=== PATIENT | female | born 2005 | race Caucasian/White ===

== ENCOUNTER → 2024-07-13 | Outpatient (CLI) | payer OTHER, SELFPAY ==
[2024-07-13 07:09] LABS: Quantiferon-TB* See Sep Rpt
[2024-07-13 07:58] LABS: Collection Type, Urine Clean Catch
[2024-07-13 08:29] LABS: Basophils % (Auto) 1 % (0-2.5); Eosinophils # (Auto) 0.1 Thou/mm3 (0.0-0.5); Eosinophils % (Auto) 2 % (0-10); Hematocrit 36.9 % (36.0-46.0); Hemoglobin 12.8 g/dL (12.0-16.0); Immature Granulocytes % (Auto) 0 % (0-0); Immature Granulocytes Auto 0.02 Thou/mm3 (0.00-0.00); Lymphocytes # (Auto) 1.6 Thou/mm3 (1.0-5.0); Lymphocytes % (Auto) 26 % (10-50); Mean Corpuscular HGB Conc 34.7 g/dl (31.0-37.0); Mean Corpuscular Hemoglobin 31.2 pg (25.0-35.0); Mean Corpuscular Volume 90 fL (80-100); Monocytes # (Auto) 0.7 Thou/mm3 (0.0-0.8); Monocytes % (Auto) 11 % (0-12); Neutrophils # (Auto) 3.6 Thou/mm3 (1.8-7.7); Neutrophils % (Auto) 60 % (37-80); Nucleated Red Blood Cell % 0 /100 WBC (0); Platelet Count 184 Thou/mm3 (140-440); RDW Standard Deviation 39.4 fL (36.4-46.3)
[2024-07-13 08:31] LABS: Bilirubin,Urine Negative (Negative); Blood,Urine Negative (Negative); Clarity,Urine Clear (Clear/Hazy); Color,Urine Yellow (Lt Yel-Yel); Glucose, Urine Negative (Negative); Ketones,Urine 1+ (Negative); Nitrite,Urine Negative (Negative); PH,Urine 6.5 (5.0-7.0); Protein,Urine Trace (Neg - Trace); RBC,Urine 2 /hpf (0-3); Specific Gravity,Urine 1.029 (1.001-1.035); Squamous Epithelial Cell,Urine 4 /hpf (0-5); Urobilinogen,Urine Negative mg/dL (0.0-1.0); WBC,Urine 1 /hpf (0-5)
[2024-07-13 08:35] LABS: Leukocyte Esterase,Urine Trace (Negative)
[2024-07-13 08:57] LABS: Alanine Aminotransferase 13 U/L (10-49); Albumin, Serum 4.6 gm/dL (3.5-5.0); Albumin/Globulin Ratio 2.3 (1.2-2.2); Alkaline Phosphatase 60 U/L (46-116); Anion Gap 8 (7-16); Aspartate Amino Transferase < 10 U/L (0-34); BUN/Creatinine Ratio 13 Ratio (12-20); Bilirubin,Total 0.3 mg/dL (0.3-1.2); Blood Urea Nitrogen 13 mg/dL (9-23); Calcium 9.8 mg/dL (8.3-10.6); Calcium (Corrected) 9.8 mg/dL (8.5-10.1); Carbon Dioxide 25.7 mMol/L (20.0-31.0); Chloride 103 mMol/L (98-107); Glucose 93 mg/dL (74-106); Osmolality,Calculated 273 (275-295); Potassium 4.2 mMol/L (3.4-5.1); Sodium 137 mMol/L (136-145); Total Protein 6.6 gm/dL (5.7-8.2); eGFR > 60 See Note
[2024-07-13 09:02] LABS: Syphilis Nonreactive (Nonreactive)
[2024-07-13 09:24] LABS: Hepatitis A Antibody IgM Non Reactive (Non React); Hepatitis B Core Antibody IgM Non Reactive (Non React); Hepatitis B Surface Antigen Non Reactive (Non React); Hepatitis C Antibody Non Reactive (Non React); Rubella, IgG Antibody Reactive (Immune)
[2024-07-13 19:27] LABS: Chlamydia trachomatis PCR Negative (Not Detect); Neisseria Gonorrhoeae DNA PCR Negative (Not Detect); Trichomonas Negative (Negative)
[2024-07-20 06:51] LABS: HIV Ag/Ab, 4th Gen NON-REACTIVE
== END | disposition home or self-care (01) ==
LOC: COPL 06:52
PROVIDERS: PCP Family Medicine; Referring Provider Student in an Organized Health Care Education/Training Program; Visit Provider Student in an Organized Health Care Education/Training Program
DX: R53.83 Other fatigue (principal); Z33.1 Pregnant state, incidental
CPT/HCPCS: 36415; 80053; 80074; 81001; 85025; 86480; 86762; 86780; 86901; 87086; 87389; 87491; 87591; 87661

== ENCOUNTER → 2024-07-30 | Outpatient (CLI) | payer OTHER, SELFPAY ==
[2024-07-30 17:50] LABS: Glucose Estimated Average 88 mg/dL (80-131); Hemoglobin A1C 4.7 % Hgb (4.8-6.0)
[2024-07-30 18:03] LABS: T4 (Thyroxine) 10.1 mcg/dL (4.5-10.9); Thyroid Stimulating Hormone 0.97 uIU/mL (0.55-4.78)
[2024-08-04 06:29] LABS: ANA Pattern NUCLEAR, SPECKLED; ANA Screen, IFA POSITIVE (NEGATIVE); Thyroid Peroxidase Antibodies* <1 IU/mL (<9)
== END | disposition home or self-care (01) ==
LOC: COPL 17:12
PROVIDERS: PCP Nurse Practitioner Family; Referring Provider Nurse Practitioner Family; Visit Provider Nurse Practitioner Family
DX: D89.9 Disorder involving the immune mechanism, unspecified (principal); R73.03 Prediabetes; Z01.83 Encounter for blood typing
CPT/HCPCS: 36415; 83036; 84436; 84443; 86038; 86039; 86376; 86850; 86900; 86901

== ENCOUNTER 2024-11-11 13:48 | Outpatient (AMB) | payer OTHER, SELFPAY ==
[2024-11-11 14:04] VITALS: BP 123/82; PULSE 95; RESP 18; TEMP 36.8; O2SAT 98; BMI 39.9
--- NOTE | 2024-11-11 14:04 | AMB.OBINITIA ---
Vital Signs 11/11/24 14:04 Height 1.63 m Height Method Stated Weight 105.347 kg Weight Measurement Method Baby Scale BMI 39.9 BP 123/82 Blood Pressure Source Automatic Cuff Blood Pressure Location Left Upper Arm Position Sitting Respiration 18 Pulse 95 Pulse Source Monitor Temp 98.2 F Temp Source Oral Pulse Oximetry (%) 98 Oxygen Delivery Method Room Air Allergies/Home Meds Allergies & Medications Allergies No Known Allergies Allergy (Verified 11/11/24 14:06) Medication Reconciliation No Known Home Medications 11/11/24 [History Confirmed 11/11/24] Intake Visit Data Collection New Patient or Established: Established Patient (seen at [facility] within 3 years) Reason for Visit:: Transfer of obstetrical care, 24 weeks Seen by Clinical Staff ONLY (RN/MA): No Anesthesiology Physician Required: No Do You Feel Safe at Home: Yes Authorities Contacted: N/A PCP or OBGYN visit in last 3 months: Yes Date of Last PCP or OBGYN visit: 11/11/24 Hx Now: Yes Are you currently on any form of Control: No Last menstrual period: 05/28/24 Pain Present Currently: No Pain Scale Used: Woods-Murillo/Numerical Pain scale:: 0 Smoking Status Smoking Status: Never smoker Questionnaires Covid-19 Vaccine Questionnaire Has patient been vacinated for Covid-19 Have you been vacinated for Covid-19: Yes PHQ-9 PHQ-2 Over the last 2 weeks, how often have you been bothered by any of the following problems? 1. Little interest or pleasure in doing things: not at all 2. Feeling down, depressed, or hopeless: not at all Total score: 0 PHQ-9 3. Trouble falling or staying asleep, or sleeping too much: Not at all 4. Feeling tired or having little energy: Not at all 5. Poor appetite or overeating: Not at all 6. Feeling bad about yourself - or that you are a failure or have let yourself or your family down: Not at all 7. Trouble concentrating on things, such as reading the newspaper or watching television: Not at all 8. Moving or speaking so slowly that other people could have noticed? - Or the opposite - being so fidgety or restless that you have been moving around a lot more than usual: not at all 9. Thoughts that you would be better off or of hurting yourself in some way: Not at all Total score: 0 If you checked off any problems, how difficult have these problems made it for you to do your work, take care of things at home, or get along with other people?: not difficult at all Source: Developed by Drs. Immanuel Yarbrough, Kate Sarmiento, Ramu Jasso and colleagues, with an educational kelsy from [employer]. 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 Her Memo is an IT tech. Tobacco History Smoking Status: Never smoker Domestic Abuse History Do You Feel Safe at Home: Yes Past Medical History Past Medical History Have you ever been diagnosed with any of the following: History of Present Illness HPI Narrative The patient is a very pleasant 19-year-old G1, P0 presents with her Memo as a transfer of care from [facility]. She is 24 weeks . Her due date is 03/03/2025. Patient reports good movement no contractions and no loss of fluids. Her past medical history is reviewed with her today revealing no significant past medical history she has no past surgical history she has her records from [facility] and these are reviewed with her today OB Initial Visit Menstrual History Menstrual reliability: definite Flow: normal Menstrual regularity: regular Monthly: Yes Age at menarche: 12 On control pills at conception: No Associated symptoms (LMP): Reports nausea OB History : 1 Para: 0 Hx # Pregnancies: 0 Hx Total # of Abortions (Spontaneous & Elective): 0 # of Living Children: 0 Infection History & Risk Evaluation History of STDs: none HIV risk evaluation: low risk Hepatitis B risk evaluation: low risk Patient or partner has history of Genital Herpes: No Varicella/chicken pox status: immunized Genetic Screening & History Genetic Screening/Teratology Counseling - Includes patient, baby's father, or anyone in either family with: 1. Patient's age 35 years or older as of estimated date of delivery: No 2. Thalassemia (Slovak, Upper Sorbian, Mediterranean, or Background); MCV less than 80: No 3. Neural Tube Defect (Meningomyelocele, Spina Bifida, or Anencephaly): No 4. Congenital Heart Defect: No 5. Down Syndrome: No 6. Yahir-Sachs (Ashkenazi Presybeterian, [employer]irsthealth, Bermudian [place]): No 7. Concepcion Disease (Ashkenazi Presybeterian): No 8. Familial Dysautonomia (Ashkenazi Presybeterian): No 9. Sickle Cell Disease or Trait (): No 10. Hemophilia or other blood disorders: No 11. Muscular Dystrophy: No 12. Cystic Fibrosis: No 13. Brantingham's Chorea: No 14. Mental Retardation/Autism: No 15. Other inherited genetic or chromosomal disorder: No 16. Maternal Metabolic Disorder (EG,TYPE 1 Diabetes, PKU): No 17. Patient or baby's father had a child with defects not listed above: No 18. Recurrent loss or a stillbirth: No 19. Medications (including supplements, vitamins, herbs or otc drugs)/illicit/recreational drugs/alcohol since last menstrual period: No 20. Any other: No Infection History 1. Live with someone with TB or exposed to TB: No 2. Rash or viral illness since last menstrual period: No 3. Hepatitis B,C: No Other (see comments) Source: [employer] Review of Systems Review of Systems Narrative Review of Systems: Patient feels good. No nausea good energy no bleeding no loss of fluids. Good movement. Gastrointestinal Gastrointestinal: Reports nausea Exam General General Appearance: alert, in no apparent distress, comfortable, cooperative and healthy appearing Results Objective Laboratory: Patient's lab work is reviewed today. She is A +, antibody screen negative, rubella immune, RPR nonreactive, hepatitis B surface antigen negative ,hep C negative ,drug screen negative ,urine culture negative , HIV negative, GC chlamydia negative . Hemoglobin 12.3. Cystic fibrosis, SMA and NIPT are reviewed and are normal. NIPT is 46XX. AFP testing was negative for spina bifida Assessment & Plan Diagnosis / Problem List (1) : Status: Acute Qualifiers: Weeks of gestation: 24 weeks Qualified Code(s): Z3A.24 - 24 weeks gestation of Assessment and Plan: Patient is up-to-date with all labs. She will need a glucose screening test and a structural survey and these were ordered. Follow-up in 4 weeks. She is taking vitamins.
== END 2024-11-11 14:56 | disposition home or self-care (01) ==
LOC: HODSOBC 13:48
PROVIDERS: Supervising Provider Obstetrics & Gynecology; Visit Provider Obstetrics & Gynecology
DX: Z76.89 Persons encountering health services in other specified circumstances (principal)

== ENCOUNTER → 2024-11-11 | Outpatient (CLI) | payer OTHER, SELFPAY ==
[2024-11-11 17:55] LABS: Glucose,1 Hour PP 50gm Dose 94 mg/dL (80-140)
== END | disposition home or self-care (01) ==
PROVIDERS: PCP Family Medicine; Referring Provider Obstetrics & Gynecology; Visit Provider Obstetrics & Gynecology
DX: Z34.90 Encounter for supervision of normal pregnancy, unspecified, unspecified trimester (principal)
CPT/HCPCS: 36415; 82950

== ENCOUNTER 2024-12-11 15:20 | Outpatient (AMB) | payer OTHER, SELFPAY ==
--- NOTE | 2024-12-11 15:38 | AMB.OBVISIT ---
Vital Signs 12/11/24 15:39 Height 1.63 m Height Method Stated Weight 109.543 kg Weight Measurement Method Standing Scale BMI 41.2 BP 115/73 Blood Pressure Source Automatic Cuff Blood Pressure Location Left Upper Arm Position Sitting Respiration 18 Pulse 87 Pulse Source Monitor Temp 97.2 F Temp Source Oral Pulse Oximetry (%) 98 Oxygen Delivery Method Room Air Allergies/Home Meds Allergies & Medications Allergies No Known Allergies Allergy (Verified 12/11/24 15:39) Medication Reconciliation azithromycin 250 mg tablet See Rx Instructions PO .COMPLEX #6 tabs 12/15/24 [Rx] Intake Visit Data Collection New Patient or Established: Established Patient (seen at [facility] within 3 years) Reason for Visit:: OBC Seen by Clinical Staff ONLY (RN/MA): No Slicing Machine Operator/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 1. Little interest or pleasure in doing things: not at all 2. Feeling down, depressed, or hopeless: not at all Total score: 0 PHQ-9 3. Trouble falling or staying asleep, or sleeping too much: Not at all 4. Feeling tired or having little energy: Not at all 5. Poor appetite or overeating: Not at all 6. Feeling bad about yourself - or that you are a failure or have let yourself or your family down: Not at all 7. Trouble concentrating on things, such as reading the newspaper or watching television: Not at all 8. Moving or speaking so slowly that other people could have noticed? - Or the opposite - being so fidgety or restless that you have been moving around a lot more than usual: not at all 9. Thoughts that you would be better off or of hurting yourself in some way: Not at all Total score: 0 If you checked off any problems, how difficult have these problems made it for you to do your work, take care of things at home, or get along with other people?: not difficult at all Source: Developed by Drs. Immanuel Yarbrough, Kate Sarmiento, Ramu Jasso and colleagues, with an educational kelsy from [employer]. 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 Her Memo is an [employer] tech. Tobacco History Smoking Status: Never smoker Second Hand Smoke Exposure: No Alcohol History Alcohol Intake: Never Domestic Abuse History Do You Feel Safe at Home: Yes Care OB Visit Log OB Flowsheet Initial Weight: Not Recorded Date <del>?</del> EGA Weight Edema CTX Effacement BP Fundal ht Pres Dilation Effacement Station Visit Note Alb Glu FHR Mov 12/11/24 <del>?</del> 28w 1d 109.543 kg 115/73 29 Not seen as I had to run out for a delivery +FM more in am and at night. No VB or LOF. Back pain, sits at work all day 140 active STORM Calculator Estimated Delivery Date Method Current WG Current Estimate 03/04/25 LMP (Certain) 28w 5d Comments: Labs [facility] A+/ Ab screen neg/ RI/ RPR NR/ HIV-/Hep C-/Hep B Sag-/ GC-/Chlam-/ NIPT-/CF-/SMA- Need SS results Need GCT results Expected Delivery Route/Plan Anticipate Notes Visit Date: 12/11/24 Last Updated by: Bebe Rahman (OB Clinic)MD Pt spouse present. Multiple Questions answered. Pt may have some pre depression. also, she has a cold she cannot kick with a possible sinus infection. Will call in a [employer] Note for work accommodation Office Procedures OB Clinic LOC & Office Proc's Nursing/Assessment Patient Status: Established Patient OB Clinic Nursing Assessment: BP Monitoring, Medication Reconciliation, Update PMH in EMR and Vital Signs OB Clinic Coordination of Care: Consent,records obtained, informed consent, Lab and Imaging orders and Staff clarify orders Special Needs: Heart tones Established Patient Charge Established Patient Point Assignment: 105 Established Patient Point Charge: EP Level 3 (80-115)
[2024-12-11 15:39] VITALS: BP 115/73; PULSE 87; RESP 18; TEMP 36.2; O2SAT 98; BMI 41.2
== END 2024-12-11 15:55 | disposition home or self-care (01) ==
LOC: HODSOBC 15:20
PROVIDERS: PCP Family Medicine; Referring Provider Family Medicine; Supervising Provider Obstetrics & Gynecology; Visit Provider Obstetrics & Gynecology
DX: Z34.93 Encounter for supervision of normal pregnancy, unspecified, third trimester (principal); Z3A.28 28 weeks gestation of pregnancy
CPT/HCPCS: 81001; 99213; G0463

== ENCOUNTER 2025-01-15 15:25 | Outpatient (AMB) | payer OTHER, SELFPAY ==
[2025-01-15 15:47] VITALS: BP 141/84; PULSE 100; RESP 18; TEMP 36.2; O2SAT 98; BMI 43.7
--- NOTE | 2025-01-15 15:47 | AMB.OBVISIT ---
Vital Signs 01/15/25 15:47 Height 1.63 m Height Method Stated Weight 116.29 kg Weight Measurement Method Standing Scale BMI 43.7 BP 141/84 H Blood Pressure Source Automatic Cuff Blood Pressure Location Left Upper Arm Position Sitting Respiration 18 Pulse 100 Pulse Source Monitor Temp 97.2 F Temp Source Oral Pulse Oximetry (%) 98 Oxygen Delivery Method Room Air Allergies/Home Meds Allergies & Medications Allergies No Known Allergies Allergy (Verified 01/15/25 16:59) Intake Visit Data Collection New Patient or Established: Established Patient (seen at [facility] within 3 years) Reason for Visit:: OBC Seen by Clinical Staff ONLY (RN/MA): No Hide Tanner Required: No Do You Feel Safe at Home: Yes Authorities Contacted: N/A PCP or OBGYN visit in last 3 months: Yes Date of Last PCP or OBGYN visit: 12/11/24 Hx Now: Yes Are you currently on any form of Control: No Pain Present Currently: No Pain Scale Used: Woods-Murillo/Numerical Pain scale:: 0 Smoking Status Smoking Status: Never smoker Questionnaires Covid-19 Vaccine Questionnaire Has patient been vacinated for Covid-19 Have you been vacinated for Covid-19: No PHQ-9 PHQ-2 Over the last 2 weeks, how often have you been bothered by any of the following problems? 1. Little interest or pleasure in doing things: not at all 2. Feeling down, depressed, or hopeless: not at all Total score: 0 PHQ-9 3. Trouble falling or staying asleep, or sleeping too much: Not at all 4. Feeling tired or having little energy: Not at all 5. Poor appetite or overeating: Not at all 6. Feeling bad about yourself - or that you are a failure or have let yourself or your family down: Not at all 7. Trouble concentrating on things, such as reading the newspaper or watching television: Not at all 8. Moving or speaking so slowly that other people could have noticed? - Or the opposite - being so fidgety or restless that you have been moving around a lot more than usual: not at all 9. Thoughts that you would be better off or of hurting yourself in some way: Not at all Total score: 0 If you checked off any problems, how difficult have these problems made it for you to do your work, take care of things at home, or get along with other people?: not difficult at all Source: Developed by Drs. Immanuel Yarbrough, Kate Sarmiento, Ramu Jasso and colleagues, with an educational kelsy from [employer]. 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 Her Memo is an IT tech. Tobacco History Smoking Status: Never smoker Second Hand Smoke Exposure: No Alcohol History Alcohol Intake: Never Domestic Abuse History Do You Feel Safe at Home: Yes Care OB Visit Log OB Flowsheet Initial Weight: Not Recorded Date <del>?</del> EGA Weight BP Alb Glu CTX Pres Fundal ht FHR Mov Dilation Station Effacement Hx Notes Visit Note 12/11/24 <del>?</del> 28w 1d 109.543 kg 115/73 29 140 active Not seen as I had to run out for a delivery +FM more in am and at night. No VB or LOF. Back pain, sits at work all day 01/15/25 <del>?</del> 33w 1d 116.29 kg 141/84 34 135 active Positive movement no loss of fluids no vaginal bleeding positive headache. 3+ edema to labor and delivery for rule out preeclampsia. Off work on modified bedrest. STORM Calculator Estimated Delivery Date Method Current WG Current Estimate 03/04/25 LMP (Certain) 33w 1d Comments: A positive /antibody negative/ hepatitis B surface antigen negative /GC chlamydia negative /rubella immune/ RPR nonreactive /hep C negative /NIPT 46XX Expected Delivery Route/Plan Anticipate Notes Visit Date: 12/11/24 Last Updated by: Bebe Rahman (OB Clinic)MD Pt spouse present. Multiple Questions answered. Pt may have some pre depression. also, she has a cold she cannot kick with a possible sinus infection. Will call in a [employer] Note for work accommodation Office Procedures OB Clinic LOC & Office Proc's Nursing/Assessment Patient Status: Established Patient OB Clinic Nursing Assessment: Medication Reconciliation, Update PMH in EMR and Vital Signs OB Clinic Coordination of Care: Education Complex Pt/Fam, Consent,records obtained, informed consent, Lab and Imaging orders, Results/Orders obtained and Staff clarify orders Special Needs: Heart tones Established Patient Charge Established Patient Point Assignment: 115 Established Patient Point Charge: EP Level 3 (80-115)
== END 2025-01-15 16:41 | disposition home or self-care (01) ==
LOC: HODSOBC 15:25
PROVIDERS: PCP Family Medicine; Referring Provider Family Medicine; Supervising Provider Obstetrics & Gynecology; Visit Provider Obstetrics & Gynecology
DX: Z34.93 Encounter for supervision of normal pregnancy, unspecified, third trimester (principal); Z3A.33 33 weeks gestation of pregnancy
CPT/HCPCS: 99213; G0463

== ENCOUNTER 2025-01-15 16:40 | Outpatient (CLI) | payer OTHER, SELFPAY ==
[2025-01-15] VITALS (38 sets, daily range): BP systolic 119–136; BP diastolic 67–74; PULSE 71–97; RESP 20–96; TEMP 36.7; O2SAT 93–99; BMI 41.9
--- NOTE | 2025-01-15 16:58 | XR_ITS ---
Examination: Complete OB ultrasound greater than 14 weeks Date and time of exam: January 15, 2025 at 1708 hours INDICATIONS: Diagnosis -induced hypertension today Findings: Viable intrauterine single fetus with single amniotic sac presentation breech spine anterior Cardiac motion 140 BPM Placenta anterior grade 1 Umbilical cord insertion seen. Amniotic fluid index 15.8 cm Cervix 3.8 cm closed Ovaries scattered by bowel gas. Composite estimated gestational age based on BPD, head circumference, abdominal circumference, femur length is 34 weeks 4 days Estimated weight 2399 g. Survey of intracranial anatomy, spinal anatomy, abdominal anatomy, four-chamber heart performed with no abnormalities identified. Impression: Viable intrauterine gestation breech presentation.
[2025-01-15 17:36] LABS: Collection Type, Urine Clean Catch; RBC,Urine 0 /hpf (0-3)
[2025-01-15 17:37] LABS: Basophils % (Auto) 0 % (0-2.5); Eosinophils # (Auto) 0.1 Thou/mm3 (0.0-0.5); Eosinophils % (Auto) 1 % (0-10); Hematocrit 31.6 % (36.0-46.0); Hemoglobin 11.5 g/dL (12.0-16.0); Immature Granulocytes % (Auto) 1 % (0-0); Immature Granulocytes Auto 0.06 Thou/mm3 (0.00-0.00); Lymphocytes # (Auto) 1.9 Thou/mm3 (1.0-4.8); Lymphocytes % (Auto) 21 % (10-50); Mean Corpuscular HGB Conc 36.4 g/dl (31.0-37.0); Mean Corpuscular Hemoglobin 32.1 pg (25.0-35.0); Mean Corpuscular Volume 88 fL (80-100); Monocytes # (Auto) 0.8 Thou/mm3 (0.0-0.8); Monocytes % (Auto) 9 % (0-12); Neutrophils # (Auto) 6.1 Thou/mm3 (1.8-7.7); Neutrophils % (Auto) 68 % (37-80); Nucleated Red Blood Cell % 0 /100 WBC (0); Platelet Count 133 Thou/mm3 (140-440); RDW Standard Deviation 40.1 fL (36.4-46.3); Red Blood Count 3.58 Miln/mm3 (4.00-5.20); White Blood Count 9.1 Thou/mm3 (4.5-11.0)
[2025-01-15 17:53] LABS: Bacteria,Urine Rare; Bilirubin,Urine Negative (Negative); Blood,Urine Negative (Negative); Clarity,Urine Turbid (Clear/Hazy); Color,Urine Yellow (Lt Yel-Yel); Glucose, Urine Negative (Negative); Ketones,Urine Negative (Negative); Leukocyte Esterase,Urine Positive (Negative); Nitrite,Urine Negative (Negative); Protein,Urine Negative (Neg - Trace); Specific Gravity,Urine 1.016 (1.001-1.035); Squamous Epithelial Cell,Urine 3 /hpf (0-5); Urobilinogen,Urine Negative mg/dL (0.0-1.0); WBC,Urine 4 /hpf (0-5)
[2025-01-15 17:56] LABS: Alanine Aminotransferase 13 U/L (10-49); Albumin, Serum 3.6 gm/dL (3.5-5.0); Albumin/Globulin Ratio 1.6 (1.2-2.2); Alkaline Phosphatase 92 U/L (46-116); Anion Gap 10 (7-16); Aspartate Amino Transferase 20 U/L (0-34); BUN/Creatinine Ratio 7 Ratio (12-20); Bilirubin,Total 0.3 mg/dL (0.3-1.2); Blood Urea Nitrogen 5 mg/dL (9-23); Calcium 8.5 mg/dL (8.3-10.6); Calcium (Corrected) 8.8 mg/dL (8.5-10.1); Carbon Dioxide 24.6 mMol/L (20.0-31.0); Chloride 106 mMol/L (98-107); Creatinine (Component) 0.7 mg/dL (0.6-1.3); Estimated Creatinine Clearance 161.8 mL/min (>60); Globulin 2.2 gm/dL (2.3-3.5); Glucose 75 mg/dL (74-106); LDH (Lactate Dehydrogenase) 206 U/L (120-246); Osmolality,Calculated 277 (275-295); Potassium 3.6 mMol/L (3.4-5.1); Sodium 141 mMol/L (136-145); Total Protein 5.8 gm/dL (5.7-8.2); Uric Acid 5.2 mg/dL (3.1-7.8); eGFR > 60 See Note
[2025-01-15 17:56] LABS: Creatinine,Random Urine 105 mg/dL (30-125); Protein Total, Random Urine 19 mg/dL (1-14)
[2025-01-15 18:03] LABS: Fibrinogen 419 mg/dL (175-375); INR 0.9 (0.9-1.3)
[2025-01-15] MEDS: BETAMET ACET/BETAMET NA PH (Celestone) 6 MG/ML VIAL 12 MG IM (18:33)
== END 2025-01-15 19:55 | disposition home or self-care (01) ==
LOC: S4S1 16:48 → S4SX 16:49
PROVIDERS: Referring Provider Specialist; Visit Provider Specialist
DX: Z34.03 Encounter for supervision of normal first pregnancy, third trimester (principal); Z36.89 Encounter for other specified antenatal screening; Z3A.33 33 weeks gestation of pregnancy
CPT/HCPCS: 36415; 59025; 76805; 80053; 81001; 82570; 83615; 84156; 84550; 85025; 85384; 85610; 85730; 87086; 96372; J0702

== ENCOUNTER 2025-01-16 19:30 | Observation (INO) | payer OTHER, SELFPAY ==
[2025-01-16] VITALS (9 sets, daily range): BP systolic 112–132; BP diastolic 55–74; PULSE 89–112; RESP 16–99; TEMP 36.7; BMI 42.2
[2025-01-16 21:37] LABS: Collection Type, Urine Clean Catch; WBC,Urine 0 /hpf (0-5)
[2025-01-16 21:58] LABS: Basophils % (Auto) 0 % (0-2.5); Eosinophils % (Auto) 0 % (0-10); Hematocrit 32.7 % (36.0-46.0); Hemoglobin 11.7 g/dL (12.0-16.0); Immature Granulocytes % (Auto) 1 % (0-0); Immature Granulocytes Auto 0.16 Thou/mm3 (0.00-0.00); Lymphocytes # (Auto) 1.9 Thou/mm3 (1.0-4.8); Lymphocytes % (Auto) 13 % (10-50); Mean Corpuscular HGB Conc 35.8 g/dl (31.0-37.0); Mean Corpuscular Hemoglobin 32.6 pg (25.0-35.0); Mean Corpuscular Volume 91 fL (80-100); Monocytes # (Auto) 1.1 Thou/mm3 (0.0-0.8); Monocytes % (Auto) 8 % (0-12); Neutrophils # (Auto) 11.1 Thou/mm3 (1.8-7.7); Neutrophils % (Auto) 78 % (37-80); Nucleated Red Blood Cell % 0 /100 WBC (0); Platelet Count 167 Thou/mm3 (140-440); RDW Standard Deviation 40.8 fL (36.4-46.3); Red Blood Count 3.59 Miln/mm3 (4.00-5.20); White Blood Count 14.3 Thou/mm3 (4.5-11.0)
[2025-01-16 22:07] LABS: Alanine Aminotransferase 14 U/L (10-49); Albumin, Serum 3.7 gm/dL (3.5-5.0); Albumin/Globulin Ratio 1.6 (1.2-2.2); Alkaline Phosphatase 86 U/L (46-116); Anion Gap 11 (7-16); Aspartate Amino Transferase 16 U/L (0-34); BUN/Creatinine Ratio 6 Ratio (12-20); Bilirubin,Total 0.2 mg/dL (0.3-1.2); Blood Urea Nitrogen < 5 mg/dL (9-23); Calcium 8.9 mg/dL (8.3-10.6); Calcium (Corrected) 9.1 mg/dL (8.5-10.1); Carbon Dioxide 22.6 mMol/L (20.0-31.0); Chloride 107 mMol/L (98-107); Creatinine (Component) 0.8 mg/dL (0.6-1.3); Estimated Creatinine Clearance 139.6 mL/min (>60); Globulin 2.3 gm/dL (2.3-3.5); Glucose 111 mg/dL (74-106); Osmolality,Calculated 279 (275-295); Potassium 3.6 mMol/L (3.4-5.1); Sodium 141 mMol/L (136-145); Uric Acid 4.9 mg/dL (3.1-7.8); eGFR > 60 See Note
[2025-01-16 22:10] LABS: Protein Total, Urine 13 mg/dL (1-14)
[2025-01-16 22:17] LABS: Amorphous Crystals,Urine Present (Absent); Bacteria,Urine 4+; Bilirubin,Urine Negative (Negative); Blood,Urine Negative (Negative); Calcium Oxalate Crystals,Urine 1+; Clarity,Urine Turbid (Clear/Hazy); Color,Urine Yellow (Lt Yel-Yel); Glucose, Urine Negative (Negative); Ketones,Urine Trace (Negative); Leukocyte Esterase,Urine Negative (Negative); Nitrite,Urine Negative (Negative); PH,Urine 6.5 (5.0-7.0); Protein Total, 24 hr Urine 312 mg/24hr (<149); Protein Total, Urine Volume 2400 mL/24hr (600-1800); Protein,Urine Negative (Neg - Trace); RBC,Urine 7 /hpf (0-3); Squamous Epithelial Cell,Urine 2 /hpf (0-5); Urobilinogen,Urine Negative mg/dL (0.0-1.0)
[2025-01-16 22:23] LABS: Creatinine,Random Urine 145 mg/dL (30-125); Fibrinogen 408 mg/dL (175-375); INR 0.9 (0.9-1.3); Partial Thromboplastin Time 24.2 Seconds (22.0-36.0); Protein Total, Random Urine 19 mg/dL (1-14)
[2025-01-16] MEDS: BETAMET ACET/BETAMET NA PH (Celestone) 6 MG/ML VIAL 12 MG IM (23:28)
== END 2025-01-16 23:30 | disposition home or self-care (01) ==
PROVIDERS: Admitting Provider Specialist; Visit Provider Specialist
DX: Z34.03 Encounter for supervision of normal first pregnancy, third trimester (principal); Z3A.33 33 weeks gestation of pregnancy
CPT/HCPCS: 36415; 59025; 59899; 80053; 81001; 82570; 84156; 84550; 85025; 85384; 85610; 85730; 96372; J0702

== ENCOUNTER 2025-01-20 13:33 | Outpatient (AMB) | payer OTHER, SELFPAY ==
--- NOTE | 2025-01-20 13:50 | OBCLNT_ITS ---
Vital Signs 01/20/25 13:51 Weight 112.037 kg Weight Measurement Method Standing Scale BP 124/78 Blood Pressure Source Automatic Cuff Blood Pressure Location Left Upper Arm Position Sitting Respiration 18 Pulse 101 H Pulse Source Monitor Temp 97.2 F Temp Source Oral Pulse Oximetry (%) 98 Oxygen Delivery Method Room Air Allergies/Home Meds Allergies & Medications Allergies No Known Allergies Allergy (Verified 01/20/25 13:51) Medication Reconciliation vit no.95-ferrous fumarate 28 mg-folic acid 800 mcg tablet () 1 tab PO QDAY 01/15/25 [History Confirmed 01/20/25] Intake Visit Data Collection New Patient or Established: Established Patient (seen at [facility] within 3 years) Reason for Visit:: OBC Seen by Clinical Staff ONLY (RN/MA): No Boiler Blower Required: No Do You Feel Safe at Home: Yes Authorities Contacted: N/A PCP or OBGYN visit in last 3 months: Yes Hx Now: Yes Are you currently on any form of Control: No Pain Present Currently: No Pain Scale Used: Woods-Murillo/Numerical Pain scale:: 0 Smoking Status Smoking Status: Never smoker Questionnaires Covid-19 Vaccine Questionnaire Has patient been vacinated for Covid-19 Have you been vacinated for Covid-19: Yes PHQ-9 PHQ-2 Over the last 2 weeks, how often have you been bothered by any of the following problems? 1. Little interest or pleasure in doing things: not at all 2. Feeling down, depressed, or hopeless: not at all Total score: 0 PHQ-9 3. Trouble falling or staying asleep, or sleeping too much: Not at all 4. Feeling tired or having little energy: Not at all 5. Poor appetite or overeating: Not at all 6. Feeling bad about yourself - or that you are a failure or have let yourself or your family down: Not at all 7. Trouble concentrating on things, such as reading the newspaper or watching television: Not at all 8. Moving or speaking so slowly that other people could have noticed? - Or the opposite - being so fidgety or restless that you have been moving around a lot more than usual: not at all 9. Thoughts that you would be better off or of hurting yourself in some way: Not at all Total score: 0 If you checked off any problems, how difficult have these problems made it for you to do your work, take care of things at home, or get along with other people?: not difficult at all Source: Developed by Drs. Immanuel Yarbrough, Kate Sarmiento, Ramu Jasso and colleagues, with an educational kelsy from [employer]. 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 Tobacco History Smoking Status: Never smoker Second Hand Smoke Exposure: No Alcohol History Alcohol Intake: Never Domestic Abuse History Do You Feel Safe at Home: Yes History of Present Illness HPI Narrative Patient is a 19-year-old G1, P0 who presents for care Care OB Visit Log OB Flowsheet Initial Weight: Not Recorded Date -?-?-?-?-?-?-?-?-?-?-?-?- EGA Weight BP Alb Glu CTX Pres Fundal ht FHR Mov Dilation Station Effaceme nt Hx Notes Visit Note 12/11/24 -?-?-?-?-?-?-?-?-?-?-?-?- 28w 1d 109.543 kg 115/73 29 140 active Not seen as I had to run out for a delivery +FM more in am and at night. No VB or LOF. Back pain, sits at work all day 01/15/25 -?-?-?-?-?-?-?-?-?-?-?-?- 33w 1d 116.29 kg 141/84 34 135 active Positive movement no loss of fluids no vaginal bleeding positive headache. 3+ edema to labor and delivery for rule out preeclampsia. Off work on modified bedrest. 01/20/25 -?-?-?-?-?-?-?-?-?-?-?-?- 33w 6d 112.037 kg 124/78 35 140 active Positive movement no contractions no loss of fluids. No headaches. +2 edema. STORM Calculator Estimated Delivery Date Method Current WG Current Estimate 03/04/25 LMP (Certain) 33w 6d Expected Delivery Route/Plan Anticipate Specific Issue/Plans OB Transfer from [facility] at 24 weeks. Maternal obesity with a BMI of approximately 40. labs on the chart A+\antibody screen negative\rubella immune\RPR nonreactive\HIV negative\hep C negative\hepatitis B surface antigen negative\NIPT within normal limits\CF negative\SMA negative\level 2 ultrasound and echo normal with Dr. Turner Notes Visit Date: 01/20/25 Last Updated by: Bebe Rahman (OB Clinic)MD Patient went to labor and delivery 01/15/2025 and was worked up for preeclampsia. She was not sent home on medication. We took her off work on modified bedrest. Patient was told by Dr Lin she might have to be induced at 37 weeks. She states she is checking her blood pressures at home and now they are in the 120s over 70s. When I saw her on the she was quite anxious about work. I told the patient would continue to monitor her blood pressures at home if her blood pressures are elevated we will induce between 37 and 38 weeks however if the patient remains stable we might not consider induction. We will see her weekly. Patient understands the signs of preeclampsia including headaches right upper quadrant pain and scotomata. Visit Date: 12/11/24 Last Updated by: Bebe Rahman (OB Clinic)MD Pt spouse present. Multiple Questions answered. Pt may have some pre depression. also, she has a cold she cannot kick with a possible sinus infection. Will call in a [employer] Note for work accommodation Office Procedures OB Clinic LOC & Office Proc's Nursing/Assessment Patient Status: Established Patient OB Clinic Nursing Assessment: Medication Reconciliation, Update PMH in EMR and Vital Signs OB Clinic Coordination of Care: Education Complex Pt/Fam, Consent,records obtained, informed consent, Lab and Imaging orders, Results/Orders obtained and Staff clarify orders Special Needs: Heart tones Established Patient Charge Established Patient Point Assignment: 115 Established Patient Point Charge: EP Level 3 (80-115)
[2025-01-20 13:51] VITALS: BP 124/78; PULSE 101; RESP 18; TEMP 36.2; O2SAT 98
== END 2025-01-20 14:11 | disposition home or self-care (01) ==
LOC: HODSOBC 13:33
PROVIDERS: Supervising Provider Obstetrics & Gynecology; Visit Provider Obstetrics & Gynecology
DX: O09.893 Supervision of other high risk pregnancies, third trimester (principal); O12.03 Gestational edema, third trimester; O99.213 Obesity complicating pregnancy, third trimester; Z3A.33 33 weeks gestation of pregnancy
CPT/HCPCS: 99213; G0463

== ENCOUNTER 2025-01-29 08:35 | Outpatient (AMB) | payer OTHER, SELFPAY ==
[2025-01-29 08:44] VITALS: BP 119/77; PULSE 90; RESP 17; TEMP 36.5; O2SAT 94; BMI 42.8
--- NOTE | 2025-01-29 08:44 | AMB.OBVISIT ---
Vital Signs 01/29/25 08:44 Height 1.63 m Height Method Measured Weight 113.171 kg Weight Measurement Method Standing Scale BMI 42.8 BP 119/77 Blood Pressure Source Automatic Cuff Blood Pressure Location Right Upper Arm Position Sitting Respiration 17 Pulse 90 Pulse Source Monitor Temp 97.7 F Temp Source Temporal Artery Scan Pulse Oximetry (%) 94 L Oxygen Delivery Method Room Air Allergies/Home Meds Allergies & Medications Allergies No Known Allergies Allergy (Verified 01/29/25 08:45) Medication Reconciliation vit no.95-ferrous fumarate 28 mg-folic acid 800 mcg tablet () 1 tab PO QDAY 01/15/25 [History Confirmed 01/29/25] Intake Visit Data Collection New Patient or Established: Established Patient (seen at [facility] within 3 years) Reason for Visit:: OBC Seen by Clinical Staff ONLY (RN/MA): No Strategic Marketing Leader Required: No Do You Feel Safe at Home: Yes Authorities Contacted: N/A PCP or OBGYN visit in last 3 months: Yes Date of Last PCP or OBGYN visit: 01/20/25 Hx Now: Yes Are you currently on any form of Control: No Pain Present Currently: No Pain Scale Used: Woods-Murillo/Numerical Pain scale:: 0 Smoking Status Smoking Status: Never smoker Questionnaires Covid-19 Vaccine Questionnaire Has patient been vacinated for Covid-19 Have you been vacinated for Covid-19: Yes PHQ-9 PHQ-2 Over the last 2 weeks, how often have you been bothered by any of the following problems? 1. Little interest or pleasure in doing things: not at all 2. Feeling down, depressed, or hopeless: not at all Total score: 0 PHQ-9 3. Trouble falling or staying asleep, or sleeping too much: Not at all 4. Feeling tired or having little energy: Not at all 5. Poor appetite or overeating: Not at all 6. Feeling bad about yourself - or that you are a failure or have let yourself or your family down: Not at all 7. Trouble concentrating on things, such as reading the newspaper or watching television: Not at all 8. Moving or speaking so slowly that other people could have noticed? - Or the opposite - being so fidgety or restless that you have been moving around a lot more than usual: not at all 9. Thoughts that you would be better off or of hurting yourself in some way: Not at all Total score: 0 If you checked off any problems, how difficult have these problems made it for you to do your work, take care of things at home, or get along with other people?: not difficult at all Source: Developed by Drs. Immanuel Yarbrough, Kate Sarmiento, Ramu Jasso and colleagues, with an educational kelsy from [employer]. 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 Her Memo is an IT tech. Tobacco History Smoking Status: Never smoker Second Hand Smoke Exposure: No Alcohol History Alcohol Intake: Never Domestic Abuse History Do You Feel Safe at Home: Yes Care OB Visit Log OB Flowsheet Initial Weight: Not Recorded Date <del>?</del> EGA Weight BP Alb Glu CTX Pres Fundal ht FHR Mov Dilation Station Effacement Hx Notes Visit Note 12/11/24 <del>?</del> 28w 1d 109.543 kg 115/73 29 140 active Not seen as I had to run out for a delivery +FM more in am and at night. No VB or LOF. Back pain, sits at work all day 01/15/25 <del>?</del> 33w 1d 116.29 kg 141/84 34 135 active Positive movement no loss of fluids no vaginal bleeding positive headache. 3+ edema to labor and delivery for rule out preeclampsia. Off work on modified bedrest. 01/20/25 <del>?</del> 33w 6d 112.037 kg 124/78 35 140 active Positive movement no contractions no loss of fluids. No headaches. +2 edema. 01/29/25 <del>?</del> 35w 1d 113.171 kg 119/77 absent 36 135 active + FM, no UCs or LOF +1 edema +1 edema Weekly NSTs BPP ordered ultrasound ordered for size dates and fluid. STORM Calculator Estimated Delivery Date Method Current WG Current Estimate 03/04/25 LMP (Certain) 35w 1d Expected Delivery Route/Plan Anticipate Specific Issue/Plans [facility]. Maternal obesity with a BMI of approximately 40. labs on the chart A+\antibody screen negative\rubella immune\RPR nonreactive\HIV negative\hep C negative\hepatitis B surface antigen negative\NIPT within normal limits\CF negative\SMA negative\level 2 ultrasound and echo normal with Dr. Turner Notes Visit Date: 01/29/25 Last Updated by: Bebe Rahman (OB Clinic)MD Patient is taking her blood pressures at home and they are consistently 120s over 70s. I will set up nonstress test starting next week just to ensure patient's blood pressure remains stable. Will check a group B strep next visit and an ultrasound for growth. Visit Date: 01/20/25 Last Updated by: Bebe Rahman (OB Clinic)MD Patient went to labor and delivery 01/15/2025 and was worked up for preeclampsia. She was not sent home on medication. We took her off work on modified bedrest. Patient was told by Dr Lin she might have to be induced at 37 weeks. She states she is checking her blood pressures at home and now they are in the 120s over 70s. When I saw her on the she was quite anxious about work. I told the patient would continue to monitor her blood pressures at home if her blood pressures are elevated we will induce between 37 and 38 weeks however if the patient remains stable we might not consider induction. We will see her weekly. Patient understands the signs of preeclampsia including headaches right upper quadrant pain and scotomata. Visit Date: 12/11/24 Last Updated by: Bebe Rahman (OB Clinic)MD Pt spouse present. Multiple Questions answered. Pt may have some pre depression. also, she has a cold she cannot kick with a possible sinus infection. Will call in a [employer] Note for work accommodation Office Procedures OB Clinic LOC & Office Proc's Nursing/Assessment Patient Status: Established Patient OB Clinic Nursing Assessment: Medication Reconciliation, Update PMH in EMR and Vital Signs OB Clinic Coordination of Care: Complex Care and Chronic Disease 1-5, 4+ Authorizations needed, Lab and Imaging orders and Staff clarify orders Special Needs: Heart tones Established Patient Charge Established Patient Point Assignment: 135 Established Patient Point Charge: EP Level 4 (120-155)
== END 2025-01-29 09:25 | disposition home or self-care (01) ==
PROVIDERS: PCP Family Medicine; Referring Provider Family Medicine; Supervising Provider Obstetrics & Gynecology; Visit Provider Obstetrics & Gynecology
DX: O09.893 Supervision of other high risk pregnancies, third trimester (principal); Z3A.35 35 weeks gestation of pregnancy; O12.03 Gestational edema, third trimester; O99.213 Obesity complicating pregnancy, third trimester
CPT/HCPCS: 99214; G0463

== ENCOUNTER 2025-02-02 14:15 | Outpatient (AMB) | payer OTHER, SELFPAY ==
[2025-02-02 14:39] VITALS: BP 126/80; PULSE 94; RESP 17; TEMP 36.7; O2SAT 95; BMI 43.0
--- NOTE | 2025-02-02 14:39 | OBCLNT_ITS ---
Vital Signs 02/02/25 14:39 Height 1.63 m Height Method Stated Weight 114.475 kg Weight Measurement Method Standing Scale BMI 43.0 BP 126/80 Blood Pressure Source Automatic Cuff Blood Pressure Location Right Upper Arm Position Sitting Respiration 17 Pulse 94 Pulse Source Monitor Temp 98.0 F Temp Source Temporal Artery Scan Pulse Oximetry (%) 95 Oxygen Delivery Method Room Air Allergies/Home Meds Allergies & Medications Allergies No Known Allergies Allergy (Verified 02/02/25 14:40) Medication Reconciliation vit no.95-ferrous fumarate 28 mg-folic acid 800 mcg tablet () 1 tab PO QDAY 01/15/25 [History Confirmed 02/02/25] Intake Visit Data Collection New Patient or Established: Established Patient (seen at [facility] within 3 years) Reason for Visit:: OBC/GBS Seen by Clinical Staff ONLY (RN/MA): No Utilities Estimator And Drafter Required: No Do You Feel Safe at Home: Yes Authorities Contacted: N/A PCP or OBGYN visit in last 3 months: Yes Date of Last PCP or OBGYN visit: 01/29/25 Hx Now: Yes Are you currently on any form of Control: No Pain Present Currently: No Pain Scale Used: Woods-Murillo/Numerical Pain scale:: 0 Smoking Status Smoking Status: Never smoker Questionnaires Covid-19 Vaccine Questionnaire Has patient been vacinated for Covid-19 Have you been vacinated for Covid-19: No PHQ-9 PHQ-2 Over the last 2 weeks, how often have you been bothered by any of the following problems? 1. Little interest or pleasure in doing things: not at all 2. Feeling down, depressed, or hopeless: not at all Total score: 0 PHQ-9 3. Trouble falling or staying asleep, or sleeping too much: Not at all 4. Feeling tired or having little energy: Not at all 5. Poor appetite or overeating: Not at all 6. Feeling bad about yourself - or that you are a failure or have let yourself or your family down: Not at all 7. Trouble concentrating on things, such as reading the newspaper or watching television: Not at all 8. Moving or speaking so slowly that other people could have noticed? - Or the opposite - being so fidgety or restless that you have been moving around a lot more than usual: not at all 9. Thoughts that you would be better off or of hurting yourself in some way: Not at all Total score: 0 If you checked off any problems, how difficult have these problems made it for you to do your work, take care of things at home, or get along with other people?: not difficult at all Source: Developed by Drs. Immanuel Yarbrough, Kate Sarmiento, Ramu Jasso and colleagues, with an educational kelsy from [employer]. 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 Her Memo is an IT tech. Tobacco History Smoking Status: Never smoker Second Hand Smoke Exposure: No Alcohol History Alcohol Intake: Never Domestic Abuse History Do You Feel Safe at Home: Yes Care OB Visit Log OB Flowsheet Initial Weight: Not Recorded Date -?-?-?-?-?-?-?-?-?-?-?-?- EGA Weight BP Alb Glu CTX Pres Fundal ht FHR Mov Dilation Station Effacement Hx Notes Visit Note 12/11/24 -?-?-?-?-?-?-?-?-?-?--?-?- 28w 1d 109.543 kg 115/73 29 140 active Not seen as I had to run out for a delivery +FM more in am and at night. No VB or LOF. Back pain, sits at work all day 01/15/25 -?-?-?-?-?-?-?-?-?-?-?-?- 33w 1d 116.29 kg 141/84 34 135 active Positive movement no loss of fluids no vaginal bleeding positive headache. 3+ edema to labor and delivery for rule out preeclampsia. Off work on modified bedrest. 01/20/25 -?-?-?-?-?-?-?-?-?-?-?-?- 33w 6d 112.037 kg 124/78 35 140 active Positive movement no contractions no loss of fluids. No headaches. +2 edema. 01/29/25 -?-?-?-?-?-?-?-?-?-?-?-?- 35w 1d 113.171 kg 119/77 absent 36 135 active + FM, no UCs or LOF +1 edema +1 edema Weekly NSTs BPP ordered ultrasound order ed for size dates and fluid. 02/02/25 -?-?-?-?-?-?-?-?-?-?-?-?- 35w 5d 114.475 kg 126/80 absent 35 145 a ctive Positive movement no contractions no loss of fluids no headaches no preeclamptic signs or symptoms. Ordered ultrasound for size and dates. Group B strep swab done today. Patient is present with her mother today asking about pushing positions in labor. Patient thinks she might not be interested in epidural. STORM Calculator Estimated Delivery Date Method Current WG Current Estimate 03/04/25 LMP (Certain) 35w 5d Expected Delivery Route/Plan Anticipate Specific Issue/Plans OB Transfer from [facility] at 24 weeks. Maternal obesity with a BMI of approximately 40. labs on the chart A+\antibody screen negative\rubella immune\RPR nonreactive\HIV negative\hep C negative\hepatitis B surface antigen negative\NIPT within normal limits\CF negative\SMA negative\level 2 ultrasound and echo normal with Dr. Turner Notes Visit Date: 02/02/25 Last Updated by: Bebe Rahman (OB Clinic)MD Cancel IOL at 37 weeks Visit Date: 01/29/25 Last Updated by: Bebe Rahman (OB Clinic)MD Patient is taking her blood pressures at home and they are consistently 120s over 70s. I will set up nonstress test starting next week just to ensure patient's blood pressure remains stable. Will check a group B strep next visit and an ultrasound for growth. Visit Date: 01/20/25 Last Updated by: Bebe Rahman (OB Clinic)MD Patient went to labor and delivery 01/15/2025 and was worked up for preeclampsia. She was not sent home on medication. We took her off work on modified bedrest. Patient was told by Dr Lin she might have to be induced at 37 weeks. She states she is checking her blood pressures at home and now they are in the 120s over 70s. When I saw her on the she was quite anxious about work. I told the patient would continue to monitor her blood pressures at home if her blood pressures are elevated we will induce between 37 and 38 weeks however if the patient remains stable we might not consider induction. We will see her weekly. Patient understands the signs of preeclampsia including headaches right upper quadrant pain and scotomata. Visit Date: 12/11/24 Last Updated by: Bebe Rahman (OB Clinic), Pt spouse present. Multiple Questions answered. Pt may have some pre depression. also, she has a cold she cannot kick with a possible sinus infection. Will call in a [employer] Note for work accommodation Office Procedures OB Clinic LOC & Office Proc's Nursing/Assessment Patient Status: Established Patient OB Clinic Nursing Assessment: Medication Reconciliation, Update PMH in EMR and Vital Signs OB Clinic Coordination of Care: Complex Care and Chronic Disease 1-5, C onsent,records obtained, informed consent, Education Simp Pt/Fam, Lab and Imaging orders and Staff clarify orders Special Needs: Heart tones Established Patient Charge Established Patient Point Assignment: 130 Established Patient Point Charge: EP Level 4 (120-155)
== END 2025-02-02 15:43 | disposition home or self-care (01) ==
LOC: HODSOBC 14:15
PROVIDERS: Supervising Provider Obstetrics & Gynecology; Visit Provider Obstetrics & Gynecology
DX: O09.893 Supervision of other high risk pregnancies, third trimester (principal); O99.213 Obesity complicating pregnancy, third trimester; Z3A.35 35 weeks gestation of pregnancy; Z36.85 Encounter for antenatal screening for Streptococcus B
CPT/HCPCS: 99214; G0463

== ENCOUNTER 2025-02-09 08:24 | Outpatient (AMB) | payer OTHER, SELFPAY ==
--- NOTE | 2025-02-09 08:42 | OBCLNT_ITS ---
Vital Signs 02/09/25 08:43 Height 1.63 m Height Method Stated Weight 115.723 kg Weight Measurement Method Standing Scale BMI 43.5 BP 126/78 Blood Pressure Source Automatic Cuff Blood Pressure Location Right Upper Arm Position Sitting Respiration 17 Pulse 94 Pulse Source Monitor Temp 97.9 F Temp Source Temporal Artery Scan Pulse Oximetry (%) 95 Oxygen Delivery Method Room Air Allergies/Home Meds Allergies & Medications Allergies No Known Allergies Allergy (Verified 02/09/25 08:49) Medication Reconciliation vit no.95-ferrous fumarate 28 mg-folic acid 800 mcg tablet () 1 tab PO QDAY 01/15/25 [History Confirmed 02/09/25] Intake Visit Data Collection New Patient or Established: Established Patient (seen at [facility] within 3 years) Reason for Visit:: OBC Seen by Clinical Staff ONLY (RN/MA): No Ophthalmic Technician Apprentice Required: No Do You Feel Safe at Home: Yes Authorities Contacted: N/A PCP or OBGYN visit in last 3 months: Yes Date of Last PCP or OBGYN visit: 02/02/25 Hx Now: Yes Are you currently on any form of Control: No Pain Present Currently: No Pain Scale Used: Woods-Murillo/Numerical Pain scale:: 0 Smoking Status Smoking Status: Never smoker Questionnaires Covid-19 Vaccine Questionnaire Has patient been vacinated for Covid-19 Have you been vacinated for Covid-19: No PHQ-9 PHQ-2 Over the last 2 weeks, how often have you been bothered by any of the following problems? 1. Little interest or pleasure in doing things: not at all 2. Feeling down, depressed, or hopeless: not at all Total score: 0 PHQ-9 3. Trouble falling or staying asleep, or sleeping too much: Not at all 4. Feeling tired or having little energy: Not at all 5. Poor appetite or overeating: Not at all 6. Feeling bad about yourself - or that you are a failure or have let yourself or your family down: Not at all 7. Trouble concentrating on things, such as reading the newspaper or watching television: Not at all 8. Moving or speaking so slowly that other people could have noticed? - Or the opposite - being so fidgety or restless that you have been moving around a lot more than usual: not at all 9. Thoughts that you would be better off or of hurting yourself in some way: Not at all Total score: 0 If you checked off any problems, how difficult have these problems made it for you to do your work, take care of things at home, or get along with other people?: not difficult at all Source: Developed by Drs. Immanuel Yarbrough, Kate Sarmiento, Ramu Jasso and colleagues, with an educational kelsy from [employer]. 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 Tobacco History Smoking Status: Never smoker Second Hand Smoke Exposure: No Alcohol History Alcohol Intake: Never Domestic Abuse History Do You Feel Safe at Home: Yes Care OB Visit Log OB Flowsheet Initial Weight: Not Recorded Date -?-?-?-?-?-?-?-?-?-?-?-?- EGA Weight BP Alb Glu CTX Pres Fundal ht FHR Mov Dilation Station Effacement Hx Notes Visit Note 12/11/24 -?-?-?-?-?-?-?-?-?--?-?-?- 28w 1d 109.543 kg 115/73 29 140 active Not seen as I had to run out for a delivery +FM more in am and at night. No VB or LOF. Back pain, sits at work all day 01/15/25 -?-?-?-?-?-?-?-?-?-?-?-?- 33w 1d 116.29 kg 141/84 34 135 active Positive movement no loss of fluids no vaginal bleeding positive headache. 3+ edema to labor and delivery for rule out preeclampsia. Off work on modified bedrest. 01/20/25 -?-?-?-?-?-?-?-?-?-?-?-?- 33w 6d 112.037 kg 124/78 35 140 active Positive movement no contractions no loss of fluids. No headaches. +2 edema. 01/29/25 -?-?-?-?-?-?-?-?-?-?-?-?- 35w 1d 113.171 kg 119/77 absent 36 135 active + FM, no UCs or LOF +1 edema +1 edema Weekly NSTs BPP ordered ultrasound order ed for size dates and fluid. 02/02/25 -?-?-?-?-?-?-?-?-?-?-?-?- 35w 5d 114.475 kg 126/80 absent 35 145 a ctive Positive movement no contractions no loss of fluids no headaches no preeclamptic signs or symptoms. Ordered ultrasound for size and dates. Group B strep swab done today. Patient is present with her mother today asking about pushing positions in labor. Patient thinks she might not be interested in epidural. 02/09/25 -?-?-?-?-?-?-?-?-?-?-?-?- 36w 5d 115.723 kg 126/78 absent cephalic 35 14 6 absent reports active, denies s/s of PIH, no leaking or bleeding. no c/o labor s/s review labor precaution and ER precaution. advised fkc bid, no questions today. rtc 1 week with OB STORM Calculator Estimated Delivery Date Method Current WG Current Estimate 03/04/25 Ultrasound #1 36w 5d Other Estimates 03/04/25 LMP (Certain) 36w 5d Expected Delivery Route/Plan Anticipate Specific Issue/Plans OB Transfer from [facility] at 24 weeks. Maternal obesity with a BMI of approximately 40. labs on the chart A+\antibody screen negative\rubella immune\RPR nonreactive\HIV negative\hep C negative\hepatitis B surface antigen negative\NIPT within normal limits\CF negative\SMA negative\level 2 ultrasound and echo normal with Dr. uTrner Notes Visit Date: 02/02/25 Last Updated by: Bebe Rahman (OB Clinic)MD Cancel IOL at 37 weeks Visit Date: 01/29/25 Last Updated by: Bebe Rahman (OB Clinic)MD Patient is taking her blood pressures at home and they are consistently 120s over 70s. I will set up nonstress test starting next week just to ensure patient's blood pressure remains stable. Will check a group B strep next visit and an ultrasound for growth. Visit Date: 01/20/25 Last Updated by: Bebe Rahman (OB Clinic)MD Patient went to labor and delivery 01/15/2025 and was worked up for preeclampsia. She was not sent home on medication. We took her off work on modified bedrest. Patient was told by Dr Lin she might have to be induced at 37 weeks. She states she is checking her blood pressures at home and now they are in the 120s over 70s. When I saw her on the she was quite anxious about work. I told the patient would continue to monitor her blood pressures at home if her blood pressures are elevated we will induce between 37 and 38 weeks however if the patient remains stable we might not consider induction. We will see her weekly. Patient understands the signs of preeclampsia including headaches right upper quadrant pain and scotomata. Visit Date: 12/11/24 Last Updated by: Bebe Rahman (OB Clinic), Pt spouse present. Multiple Questions answered. Pt may have some pre depression. also, she has a cold she cannot kick with a possible sinus infection. Will call in a [employer] Note for work accommodation Office Procedures OB Clinic LOC & Office Proc's Nursing/Assessment Patient Status: Established Patient OB Clinic Nursing Assessment: Medication Reconciliation, Update PMH in EMR and Vital Signs OB Clinic Coordination of Care: Complex Care and Chronic Disease 1-5, Consent,records obtained, informed consent, Education Simp Pt/Fam, Results/Orders obtained and Staff clarify orders Special Needs: Heart tones Established Patient Charge Established Patient Point Assignment: 120 Established Patient Point Charge: EP Level 4 (120-155) Assessment & Plan Diagnosis / Problem List (1) : Status: Acute Qualifiers: Weeks of gestation: 24 weeks Qualified Code(s): Z3A.24 - 24 weeks gestation of (2) Morbid obesity with BMI of 40.0-44.9, adult: Status: Acute Plan discuss labor precaution and ER precaution. advised fkc bid. rtc 1 week obc Additional Plan Follow Up: 1 Week (obc)
[2025-02-09 08:43] VITALS: BP 126/78; PULSE 94; RESP 17; TEMP 36.6; O2SAT 95; BMI 43.5
== END 2025-02-09 09:20 | disposition home or self-care (01) ==
LOC: HODSOBC 08:24
PROVIDERS: Supervising Provider Advanced Practice Midwife; Visit Provider Advanced Practice Midwife
DX: Z34.03 Encounter for supervision of normal first pregnancy, third trimester (principal); Z3A.36 36 weeks gestation of pregnancy
CPT/HCPCS: 99214; G0463

== ENCOUNTER → 2025-02-18 | Outpatient (CLI) | payer OTHER, SELFPAY ==
--- NOTE | 2025-02-18 16:00 | XR_ITS ---
Examination: Complete OB ultrasound greater than 14 weeks Date and time of exam: February 18, 2025, 1600 hours INDICATIONS: Diagnosis preeclampsia of Findings: Viable intrauterine single fetus with single amniotic sac presentation cephalic spine maternal right Cardiac motion 141 BPM Placenta anterior grade 3 Umbilical cord insertion seen Amniotic fluid index 15.2 cm Cervix 4.1 cm Ovaries obscured by bowel gas. Composite estimated gestational age based on BPD, head circumference, abdominal circumference, femur length is 37 weeks 6 days Estimated weight 3392 g. Survey of intracranial anatomy, spinal anatomy, abdominal anatomy, four-chamber heart performed with no abnormalities identified. Impression: Viable intrauterine gestation cephalic presentation.
== END | disposition home or self-care (01) ==
LOC: CDIM 15:43
PROVIDERS: PCP Nurse Practitioner Family; Referring Provider Obstetrics & Gynecology; Visit Provider Obstetrics & Gynecology
DX: O14.90 Unspecified pre-eclampsia, unspecified trimester (principal); Z3A.37 37 weeks gestation of pregnancy
CPT/HCPCS: 76805

== ENCOUNTER 2025-02-19 13:04 | Outpatient (AMB) | payer OTHER, SELFPAY ==
--- NOTE | 2025-02-19 13:07 | OBCLNT_ITS ---
Vital Signs 02/19/25 13:08 Height 1.63 m Height Method Stated Weight 118.444 kg Weight Measurement Method Standing Scale BMI 44.6 BP 128/81 Blood Pressure Source Automatic Cuff Blood Pressure Location Left Upper Arm Position Sitting Respiration 18 Pulse 92 Pulse Source Monitor Temp 97.7 F Temp Source Oral Pulse Oximetry (%) 97 Oxygen Delivery Method Room Air Allergies/Home Meds Allergies & Medications Allergies No Known Allergies Allergy (Verified 02/19/25 13:09) Medication Reconciliation vit no.95-ferrous fumarate 28 mg-folic acid 800 mcg tablet () 1 tab PO QDAY 01/15/25 [History Confirmed 02/19/25] Intake Visit Data Collection New Patient or Established: Established Patient (seen at [facility] within 3 years) Reason for Visit:: CARE Seen by Clinical Staff ONLY (RN/MA): No Turning Sander Tender Required: No Do You Feel Safe at Home: Yes Authorities Contacted: N/A PCP or OBGYN visit in last 3 months: Yes Hx Now: Yes Are you currently on any form of Control: No Pain Present Currently: No Pain Scale Used: Woods-Mur[place]/Numerical Pain scale:: 0 Smoking Status Smoking Status: Never smoker Questionnaires Covid-19 Vaccine Questionnaire Has patient been vacinated for Covid-19 Have you been vacinated for Covid-19: Yes PHQ-9 PHQ-2 Over the last 2 weeks, how often have you been bothered by any of the following problems? 1. Little interest or pleasure in doing things: not at all 2. Feeling down, depressed, or hopeless: not at all Total score: 0 PHQ-9 3. Trouble falling or staying asleep, or sleeping too much: Not at all 4. Feeling tired or having little energy: Not at all 5. Poor appetite or overeating: Not at all 6. Feeling bad about yourself - or that you are a failure or have let yourself or your family down: Not at all 7. Trouble concentrating on things, such as reading the newspaper or watching television: Not at all 8. Moving or speaking so slowly that other people could have noticed? - Or the opposite - being so fidgety or restless that you have been moving around a lot more than usual: not at all 9. Thoughts that you would be better off or of hurting yourself in some way: Not at all Total score: 0 Source: Developed by Drs. Immanuel Yarbrough, Kate Sarmiento, Ramu Jasso and colleagues, with an educational kelsy from [employer]. 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 Her Memo is an IT tech. Tobacco History Smoking Status: Never smoker Second Hand Smoke Exposure: No Alcohol History Alcohol Intake: Never Domestic Abuse History Do You Feel Safe at Home: Yes History of Present Illness HPI Narrative The patient is a 19 y/o who presents for PNC. Care OB Visit Log OB Flowsheet Initial Weight: Not Recorded Date -?-?-?-?-?-?-?-?-?-?-?-?- EGA Weight BP Alb Glu CTX Pres Fundal ht FHR Mov Dilation Station Effacement Hx Notes Visit Note 12/11/24 -?-?-?-?-?-?-?-?-?-?-?-?- 28w 1d 109.543 kg 115/73 29 140 active Not seen as I had to run out for a delivery +FM more in am and at night. No VB or LOF. Back pain, sits at work all day 01/15/25 -?-?-?-?-?-?-?-?-?-?-?-?- 33w 1d 116.29 kg 141/84 34 135 active Positive movement no loss of fluids no vaginal bleeding positive headache. 3+ edema to labor and delivery for rule out preeclampsia. Off work on modified bedrest. 01/20/25 -?-?-?-?-?-?-?-?-?-?-?--?- 33w 6d 112.037 kg 124/78 35 140 active Positive movement no contractions no loss of fluids. No headaches. +2 edema. 01/29/25 -?-?-?-?-?-?-?-?-?-?-?-?- 35w 1d 113.171 kg 119/77 absent 36 135 active + FM, no UCs or LOF +1 edema +1 edema Weekly NSTs BPP ordered ultrasound order ed for size dates and fluid. 02/02/25 -?-?-?-?-?-?-?-?-?-?-?-?- 35w 5d 114.475 kg 126/80 absent 35 145 a ctive Positive movement no contractions no loss of fluids no headaches no preeclamptic signs or symptoms. Ordered ultrasound for size and dates. Group B strep swab done today. Patient is present with her mother today asking about pushing positions in labor. Patient thinks she might not be interested in epidural. 02/09/25 -?-?-?-?-?-?-?-?-?-?-?-?- 36w 5d 115.723 kg 126/78 absent cephalic 35 14 6 absent reports active, denies s/s of PIH, no leaking or bleeding. no c/o labor s/s review labor precaution and ER precaution. advised fkc bid, no questions today. rtc 1 week with OB 02/19/25 -?-?-?-?-?-?-?-?-?-?-?-?- 38w 1d 118.444 kg 128/81 occasional cephalic 36 154 active Pt BP gppd at home. Paperwork sent over again to L and D to try to get bi weekly NSTs done. No UCs or LOF GBBS culture not back yet STORM Calculator Estimated Delivery Date Method Current WG Current Estimate 03/04/25 Ultrasound #1 38w 3d Other Estimates 03/04/25 LMP (Certain) 38w 3d Expected Delivery Route/Plan Anticipate BMI 45 Specific Issue/Plans OB Transfer from [facility] at 24 weeks. Maternal obesity with a BMI of approximately 40. labs on the chart A+\antibody screen negative\rubella immune\RPR nonreactive\HIV negative\hep C negative\hepatitis B surface antigen negative\NIPT within normal limits\CF negative\SMA negative\level 2 ultrasound and echo normal with Dr. Turner Notes Visit Date: 02/19/25 Last Updated by: Bebe Rahman (OB Clinic)MD US done at [facility] baby is measuring 7 lbs 4 oz with an FABY of 15. Probable IOL by her due date secondary to maternal elevated BMI Visit Date: 02/02/25 Last Updated by: Bebe Rahman (OB Clinic)MD Cancel IOL at 37 weeks Visit Date: 01/29/25 Last Updated by: Bebe Rahman (OB Clinic)MD Patient is taking her blood pressures at home and they are consistently 120s over 70s. I will set up nonstress test starting next week just to ensure patient's blood pressure remains stable. Will check a group B strep next visit and an ultrasound for growth. Visit Date: 01/20/25 Last Updated by: Bebe Rahman (OB Clinic)MD Patient went to labor and delivery 01/15/2025 and was worked up for preeclampsia. She was not sent home on medication. We took her off work on modified bedrest. Patient was told by Dr Lin she might have to be induced at 37 weeks. She states she is checking her blood pressures at home and now they are in the 120s over 70s. When I saw her on the she was quite anxious about work. I told the patient would continue to monitor her blood pressures at home if her blood pressures are elevated we will induce between 37 and 38 weeks however if the patient remains stable we might not consider induction. We will see her weekly. Patient understands the signs of preeclampsia including headaches right upper quadrant pain and scotomata. Visit Date: 12/11/24 Last Updated by: Bebe Rahman (OB Clinic)MD Pt spouse present. Multiple Questions answered. Pt may have some pre depression. also, she has a cold she cannot kick with a possible sinus infection. Will call in a [employer] Note for work accommodation Office Procedures OB Clinic LOC & Office Proc's Nursing/Assessment Patient Status: Established Patient OB Clinic Nursing Assessment: Medication Reconciliation, Update PMH in EMR and Vital Signs OB Clinic Coordination of Care: Complex Care and Chronic Disease 1-5, Consent,records obtained, informed consent, Education Simp Pt/Fam, Lab and Imaging orders, Results/Orders obtained and Staff clarify orders Special Needs: Heart tones Established Patient Charge Established Patient Point Assignment: 135 Established Patient Point Charge: EP Level 4 (120-155)
[2025-02-19 13:08] VITALS: BP 128/81; PULSE 92; RESP 18; TEMP 36.5; O2SAT 97; BMI 44.6
== END 2025-02-19 13:38 | disposition home or self-care (01) ==
LOC: HODSOBC 13:04
PROVIDERS: Supervising Provider Obstetrics & Gynecology; Visit Provider Obstetrics & Gynecology
DX: O09.893 Supervision of other high risk pregnancies, third trimester (principal); O99.213 Obesity complicating pregnancy, third trimester; Z3A.38 38 weeks gestation of pregnancy
CPT/HCPCS: 99214; G0463

== ENCOUNTER 2025-02-25 15:06 | Outpatient (AMB) | payer OTHER, SELFPAY ==
[2025-02-25 15:23] VITALS: BP 131/80; PULSE 99; RESP 20; TEMP 36.9; O2SAT 97; BMI 44.1
--- NOTE | 2025-02-25 15:23 | OBCLNT_ITS ---
Vital Signs 02/25/25 15:23 Height 1.63 m Height Method Stated Weight 117.48 kg Weight Measurement Method Standing Scale BMI 44.1 BP 131/80 H Blood Pressure Source Automatic Cuff Blood Pressure Location Left Upper Arm Position Sitting Respiration 20 Pulse 99 Pulse Source Monitor Temp 98.5 F Temp Source Oral Pulse Oximetry (%) 97 Oxygen Delivery Method Room Air Allergies/Home Meds Allergies & Medications Allergies No Known Allergies Allergy (Verified 02/25/25 15:24) Medication Reconciliation vit no.95-ferrous fumarate 28 mg-folic acid 800 mcg tablet () 1 tab PO QDAY 01/15/25 [History Confirmed 02/25/25] Intake Visit Data Collection New Patient or Established: Established Patient (seen at [facility] within 3 years) Reason for Visit:: CARE Seen by Clinical Staff ONLY (RN/MA): No Chairman Of The Board Required: No Do You Feel Safe at Home: Yes Authorities Contacted: N/A PCP or OBGYN visit in last 3 months: Yes Hx Now: Yes Are you currently on any form of Control: No Pain Present Currently: No Pain Scale Used: Woods-Mur[place]/Numerical Pain scale:: 0 Smoking Status Smoking Status: Never smoker Questionnaires Covid-19 Vaccine Questionnaire Has patient been vacinated for Covid-19 Have you been vacinated for Covid-19: Yes PHQ-9 PHQ-2 Over the last 2 weeks, how often have you been bothered by any of the following problems? 1. Little interest or pleasure in doing things: not at all 2. Feeling down, depressed, or hopeless: not at all Total score: 0 PHQ-9 3. Trouble falling or staying asleep, or sleeping too much: Not at all 4. Feeling tired or having little energy: Not at all 5. Poor appetite or overeating: Not at all 6. Feeling bad about yourself - or that you are a failure or have let yourself or your family down: Not at all 7. Trouble concentrating on things, such as reading the newspaper or watching television: Not at all 8. Moving or speaking so slowly that other people could have noticed? - Or the opposite - being so fidgety or restless that you have been moving around a lot more than usual: not at all 9. Thoughts that you would be better off or of hurting yourself in some way: Not at all Total score: 0 Source: Developed by Drs. Immanuel Yarbrough, Kate Sarmiento, Ramu Jasso and colleagues, with an educational kelsy from [employer]. 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 Her Memo is an IT tech. Tobacco History Smoking Status: Never smoker Second Hand Smoke Exposure: No Alcohol History Alcohol Intake: Never Domestic Abuse History Do You Feel Safe at Home: Yes Care OB Visit Log OB Flowsheet Initial Weight: Not Recorded Date -?-?-?-?-?-?-?-?-?-?-?-?- EGA Weight BP Alb Glu CTX Pres Fundal ht FHR Mov Dilation Station Effacement Hx Notes Visit Note 12/11/24 -?-?-?-?-?-?-?-?-?-?-?-?- 28w 1d 109.543 kg 115/73 29 140 active Not seen as I had to run out for a delivery +FM more in am and at night. No VB or LOF. Back pain, sits at work all day 01/15/25 -?-?-?-?-?-?-?-?-?-?-?-?- 33w 1d 116.29 kg 141/84 34 135 active Positive movement no loss of fluids no vaginal bleeding positive headache. 3+ edema to labor and delivery for rule out preeclampsia. Off work on modified bedrest. 01/20/25 -?-?-?-?-?-?-?-?-?-?-?-?- 33w 6d 112.037 kg 124/78 35 140 active Positive movement no contractions no loss of fluids. No headaches. +2 edema. 01/29/25 -?-?-?-?-?-?-?-?-?-?-?-?- 35w 1d 113.171 kg 119/77 absent 36 135 active + FM, no UCs or LOF +1 edema +1 edema Weekly NSTs BPP ordered ultrasound order ed for size dates and fluid. 02/02/25 -?-?-?-?-?-?-?-?-?-?-?-?- 35w 5d 114.475 kg 126/80 absent 35 145 a ctive Positive movement no contractions no loss of fluids no headaches no preeclamptic signs or symptoms. Ordered ultrasound for size and dates. Group B strep swab done today. Patient is present with her mother today asking about pushing positions in labor. Patient thinks she might not be interested in epidural. 02/09/25 -?-?-?-?-?-?-?-?-?-?-?-?- 36w 5d 115.723 kg 126/78 absent cephalic 35 14 6 absent reports active, denies s/s of PIH, no leaking or bleeding. no c/o labor s/s review labor precaution and ER precaution. advised fkc bid, no questions today. rtc 1 week with OB 02/19/25 -?-?-?-?-?-?-?-?-?-?-?-?- 38w 1d 118.444 kg 128/81 occasional cephalic 36 154 active Pt BP gppd at home. Paperwork sent over again to L and D to try to get bi weekly NSTs done. No UCs or LOF GBBS culture not back yet 02/25/25 -?-?-?-?-?-?-?-?-?-?-?-?- 39w 0d 117.48 kg 131/80 occasional cephalic 39 137 active 1 -3 50 Positive movement no contractions no loss of fluids No strep culture back we will have it checked in OB triage when she comes in Saturday for an NST. STORM Calculator Estimated Delivery Date Method Current WG Current Estimate 03/04/25 Ultrasound #1 39w 0d Other Estimates 03/04/25 LMP (Certain) 39w 0d Expected Delivery Route/Plan Anticipate BMI 45 Specific Issue/Plans OB Transfer from [facility] at 24 weeks. Maternal obesity with a BMI of approximately 40. labs on the chart A+\antibody screen negative\rubella immune\RPR nonreactive\HIV negative\hep C negative\hepatitis B surface antigen negative\NIPT within normal limits\CF negative\SMA negative\level 2 ultrasound and echo normal with Dr. Turner Notes Visit Date: 02/25/25 Last Updated by: Bebe Rahman (OB Clinic)MD Patient is scheduled for induction of labor 03/03/2025 at 7 AM. Visit Date: 02/19/25 Last Updated by: Bebe Rahman (OB Clinic)MD US done at [facility] baby is measuring 7 lbs 4 oz with an FABY of 15. Probable IOL by her due date secondary to maternal elevated BMI Visit Date: 02/02/25 Last Updated by: Bebe Rahman (OB Clinic)MD Cancel IOL at 37 weeks Visit Date: 01/29/25 Last Updated by: Bebe Rahman (OB Clinic)MD Patient is taking her blood pressures at home and they are consistently 120s over 70s. I will set up nonstress test starting next week just to ensure patient's blood pressure remains stable. Will check a group B strep next visit and an ultrasound for growth. Visit Date: 01/20/25 Last Updated by: Bebe Rahman (OB Clinic)MD Patient went to labor and delivery 01/15/2025 and was worked up for preeclampsia. She was not sent home on medication. We took her off work on modified bedrest. Patient was told by Dr Lin she might have to be induced at 37 weeks. She states she is checking her blood pressures at home and now they are in the 120s over 70s. When I saw her on the she was quite anxious about work. I told the patient would continue to monitor her blood pressures at home if her blood pressures are elevated we will induce between 37 and 38 weeks however if the patient remains stable we might not consider induction. We will see her weekly. Patient understands the signs of preeclampsia including headaches right upper quadrant pain and scotomata. Visit Date: 12/11/24 Last Updated by: Bebe Rahman (OB Clinic)MD Pt spouse present. Multiple Questions answered. Pt may have some pre depression. also, she has a cold she cannot kick with a possible sinus infection. Will call in a [employer] Note for work accommodation Office Procedures OB Clinic LOC & Office Proc's Nursing/Assessment Patient Status: Established Patient OB Clinic Nursing Assessment: Medication Reconciliation, Update PMH in EMR and Vital Signs OB Clinic Coordination of Care: Complex Care and Chronic Disease 1-5, Consent,records obtained, informed consent, Education Simp Pt/Fam, Lab and Imaging orders, Results/Orders obtained and Staff clarify orders Special Needs: Heart tones Established Patient Charge Established Patient Point Assignment: 135 Established Patient Point Charge: EP Level 4 (120-155)
== END 2025-02-25 16:58 | disposition home or self-care (01) ==
LOC: HODSOBC 15:06
PROVIDERS: Supervising Provider Obstetrics & Gynecology; Visit Provider Obstetrics & Gynecology
DX: O09.893 Supervision of other high risk pregnancies, third trimester (principal); O99.213 Obesity complicating pregnancy, third trimester; Z3A.39 39 weeks gestation of pregnancy
CPT/HCPCS: 99214; G0463

== ENCOUNTER 2025-03-01 09:38 | Outpatient (RCR) | payer OTHER, SELFPAY ==
--- NOTE | 2025-02-22 09:50 | XR_ITS ---
Examination: Biophysical profile, ultrasound Date and time of exam: February 22, 2025 1004 hours INDICATIONS: Diagnosis preeclampsia of , diagnosis maternal obesity Technique: Multiple transabdominal sonographic images of the pelvis abdomen obtained. Attention is directed to the breathing movement, gross body movement, amniotic fluid volume and tone. Findings: Amniotic fluid index 16 cm Total biophysical profile is 8 of 8. breathing movement is 2. Gross body movement is 2. tone is 2. Qualitative amniotic fluid volume is 2 Impression: Biophysical profile is 8 of 8.
[2025-02-22 11:01] VITALS: BP 126/64; PULSE 98; RESP 20; TEMP 36.7
--- NOTE | 2025-02-25 09:41 | XR_ITS ---
Examination: Biophysical profile, ultrasound Date and time of exam: February 25, 2025 1001 hours INDICATIONS: Diagnosis maternal obesity, diagnosis preeclampsia of Technique: Multiple transabdominal sonographic images of the pelvis abdomen obtained. Attention is directed to the breathing movement, gross body movement, amniotic fluid volume and tone. Findings: Amniotic fluid index 12.6 cm Total biophysical profile is 8 of 8. breathing movement is 2. Gross body movement is 2. tone is 2. Qualitative amniotic fluid volume is 2 Impression: Biophysical profile is 8 of 8.
[2025-02-25 10:20] VITALS: BP 134/84; PULSE 88; RESP 16; TEMP 36.7
--- NOTE | 2025-03-01 09:43 | XR_ITS ---
Examination: Biophysical profile, ultrasound Date and time of exam: March 01, 2025 0955 hours INDICATIONS: Diagnosis maternal obesity, diagnosis preeclampsia of Technique: Multiple transabdominal sonographic images of the pelvis abdomen obtained. Attention is directed to the breathing movement, gross body movement, amniotic fluid volume and tone. Findings: Amniotic fluid index 9.9 cm Total biophysical profile is 8 of 8. breathing movement is 2. Gross body movement is 2. tone is 2. Qualitative amniotic fluid volume is 2 Impression: Biophysical profile is 8 of 8.
[2025-03-01 10:21] VITALS: BP 130/68; PULSE 88; RESP 16; TEMP 36.7
== END 2025-03-01 23:59 | disposition home or self-care (01) ==
LOC: S4S1 09:38
PROVIDERS: PCP Nurse Practitioner Family; Referring Provider Obstetrics & Gynecology; Visit Provider Obstetrics & Gynecology
DX: O99.213 Obesity complicating pregnancy, third trimester (principal); O14.93 Unspecified pre-eclampsia, third trimester; E66.01 Morbid (severe) obesity due to excess calories; Z3A.39 39 weeks gestation of pregnancy
CPT/HCPCS: 59025; 76819

== ENCOUNTER 2025-03-03 09:32 | Inpatient (IN) | payer OTHER, SELFPAY ==
[2025-03-03] VITALS (20 sets, daily range): BP systolic 123–179; BP diastolic 77–104; PULSE 76–104; RESP 16–18; TEMP 36.4–36.9; BMI 43.2
--- NOTE | 2025-03-03 09:51 | XR_ITS ---
Examination: age Limited TECHNIQUE: Limited transabdominal sonographic images pelvis Date and time: March 03, 2025, 1013 hours INDICATIONS: Labor evaluation today, diagnosis maternal obesity, diagnosis preeclampsia of , induction today FINDINGS: Viable intrauterine gestation cephalic presentation Cardiac motion 144 BPM Cervix 3.9 cm IMPRESSION: Viable uterine gestation cephalic presentation
[2025-03-03 11:02] LABS: Basophils # (Auto) 0.0 Thou/mm3 (0.0-0.2); Basophils % (Auto) 1 % (0-2.5); Eosinophils # (Auto) 0.1 Thou/mm3 (0.0-0.5); Eosinophils % (Auto) 1 % (0-10); Hematocrit 34.2 % (36.0-46.0); Hemoglobin 11.9 g/dL (12.0-16.0); Immature Granulocytes Auto 0.04 Thou/mm3 (0.00-0.00); Lymphocytes # (Auto) 1.6 Thou/mm3 (1.0-4.8); Lymphocytes % (Auto) 18 % (10-50); Mean Corpuscular HGB Conc 34.8 g/dl (31.0-37.0); Mean Corpuscular Hemoglobin 31.6 pg (25.0-35.0); Mean Corpuscular Volume 91 fL (80-100); Monocytes # (Auto) 0.7 Thou/mm3 (0.0-0.8); Monocytes % (Auto) 8 % (0-12); Neutrophils # (Auto) 6.2 Thou/mm3 (1.8-7.7); Neutrophils % (Auto) 72 % (37-80); Nucleated Red Blood Cell # 0.00 Thou/mm3 (0.00-0.00); Nucleated Red Blood Cell % 0 /100 WBC (0); Platelet Count 117 Thou/mm3 (140-440); RDW Standard Deviation 41.9 fL (36.4-46.3); Red Blood Count 3.76 Miln/mm3 (4.00-5.20); White Blood Count 8.7 Thou/mm3 (4.5-11.0)
[2025-03-03 11:14] LABS: Amphetamine/Metham Scrn,Ur OB Negative (Negative); Benzoylecgonine Screen, Ur OB Negative (Negative); Collection Type, Urine Clean Catch; Creatinine,Random Urine 163 mg/dL (30-125); Opiate Screen,Urine OB Negative (Negative); Protein Total, Random Urine 23 mg/dL (1-14); THC Screen,Urine OB Negative (Negative)
[2025-03-03 11:17] LABS: Bacteria,Urine Rare; Bilirubin,Urine Negative (Negative); Blood,Urine Negative (Negative); Clarity,Urine Clear (Clear/Hazy); Color,Urine Yellow (Lt Yel-Yel); Glucose, Urine Negative (Negative); Ketones,Urine Negative (Negative); Leukocyte Esterase,Urine Negative (Negative); Nitrite,Urine Negative (Negative); PH,Urine 6.5 (5.0-7.0); Protein,Urine Negative (Neg - Trace); RBC,Urine 1 /hpf (0-3); Specific Gravity,Urine 1.018 (1.001-1.035); Squamous Epithelial Cell,Urine 2 /hpf (0-5); Urobilinogen,Urine Negative mg/dL (0.0-1.0); WBC,Urine 4 /hpf (0-5)
[2025-03-03 11:26] LABS: Alanine Aminotransferase 19 U/L (10-49); Albumin, Serum 3.5 gm/dL (3.5-5.0); Albumin/Globulin Ratio 1.5 (1.2-2.2); Alkaline Phosphatase 159 U/L (46-116); Anion Gap 8 (7-16); Aspartate Amino Transferase 24 U/L (0-34); BUN/Creatinine Ratio 11 Ratio (12-20); Bilirubin,Total 0.5 mg/dL (0.3-1.2); Blood Urea Nitrogen 8 mg/dL (9-23); Calcium 8.9 mg/dL (8.3-10.6); Calcium (Corrected) 9.3 mg/dL (8.5-10.1); Carbon Dioxide 23.4 mMol/L (20.0-31.0); Chloride 107 mMol/L (98-107); Creatinine (Component) 0.7 mg/dL (0.6-1.3); Estimated Creatinine Clearance 164.7 mL/min (>60); Globulin 2.3 gm/dL (2.3-3.5); Glucose 87 mg/dL (74-106); Osmolality,Calculated 272 (275-295); Potassium 3.8 mMol/L (3.4-5.1); Sodium 138 mMol/L (136-145); Total Protein 5.8 gm/dL (5.7-8.2); Uric Acid 6.3 mg/dL (3.1-7.8); eGFR > 60 See Note
[2025-03-03 11:34] LABS: Fibrinogen 408 mg/dL (175-375); INR 0.9 (0.9-1.3); Partial Thromboplastin Time 26.1 Seconds (22.0-36.0); Prothrombin Time 9.9 Seconds (9.0-12.2)
[2025-03-03 11:44] LABS: Syphilis Nonreactive (Nonreactive)
--- NOTE | 2025-03-03 18:11 | PD.LDHP ---
Documentation for date of: 03/03/25 OB Labor/Induct. HPI History of Present Illness Chief complaint: Induction of labor : 1 Term pregnancies: 0 pregnancies: 0 Living children: 0 History of Abortions: Spontaneous and Elective: 0 History of sections: No History of : No Date of last menstrual period: 05/28/24 STORM: 03/04/25 Gestational age based on last menstrual period: 39 Indication for induction: other (Borderline elevated blood pressures, BMI of 43) History of present illness: The patient is a 19-year-old G1, P0 with all care started at [facility] were transferred to the [facility] OB clinic at about 24 weeks. care up-to-date with Dr. Melody Rahman. She presented at term, at 40 weeks ,for scheduled induction of labor secondary to elevated BMI with borderline hypertension. History of Present Dating criteria: LMP confirmed by 1st trimester US Adequate Care: Yes Ultrasounds: normal mid trimester US Obstetrical complications: gestational hypertension and other (Maternal BMI of 43,) Medical complications: none Labs Maternal Blood Type: A Pos Labs: Positive: Rubella Titre, Negative: RPR, Hepatitis B, HIV, Chlamydia and Gonorrhea and Unknown: Herpes Type 1, Herpes Type 2, Group Beta Strep and Covid-19 Narrative: Unknown strep screen. This was drawn but not resulted. Ampicillin prophylaxis in active labor. Past Medical History Surgical History SURGICAL: Negative Section Meds Home Medications and Allergies Home Medications ?Medication ?Instructions ?Recorded ?Confirmed ?Type vit no.95-ferrous 1 tab PO QDAY 01/15/25 03/03/25 History fumarate 28 mg-folic acid 800 mcg tablet () Allergies Allergy/AdvReac Type Severity Reaction Status Date / Time No Known Allergies Allergy Verified 03/03/25 09:53 OB Exam Physical Exam Vital signs: Temp Pulse Resp BP 98.1 F 82 16 142/80 H 03/03/25 16:38 03/03/25 16:39 03/03/25 16:38 03/03/25 16:39 Detailed Labor and Delivery Exam Effacement (%): 70 Cervix position: mid station: -2 Consistency: medium Presentation: Vertex Membranes: intact Baseline heart rate: 150 monitor accelerations: 15x15 monitor decelerations: None 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: Moderate (11-25) Contraction frequency (min): Every 4 minutes Tachysystole: No Contraction intensity: Mild OB Results Labs 03/03/25 10:35 03/03/25 10:35 Labs: Short CBC 03/03/25 Range/Units 10:35 WBC 8.7 (4.5-11.0) Thou/mm3 Hgb 11.9 L (12.0-16.0) g/dL Hct 34.2 L (36.0-46.0) % Plt Count 117 L (140-440) Thou/mm3 BMP 03/03/25 10:35 Sodium 138 Potassium 3.8 Chloride 107 Carbon Dioxide 23.4 BUN 8 L Creatinine 0.7 Glucose 87 Calcium 8.9 Liver Function 03/03/25 Range/Units 10:35 Total Bilirubin 0.5 (0.3-1.2) mg/dL AST 24 (0-34) U/L ALT 19 (10-49) U/L Alkaline Phosphatase 159 H (46-116) U/L Albumin 3.5 (3.5-5.0) gm/dL Urine 03/03/25 Range/Units 10:30 Urine Color Yellow (Lt Yel-Yel) Urine Clarity Clear (Clear/Hazy) Urine pH 6.5 (5.0-7.0) Ur Specific [place] 1.018 (1.001-1.035) Urine Protein Negative (Neg - Trace) Urine Glucose (UA) Negative (Negative) OB Assessment & Plan Assessment and Plan (1) Morbid obesity with BMI of 40.0-44.9, adult: Status: Acute (2) : Status: Acute (3) -induced hypertension in third trimester: Status: Acute Additional Plan Induction method: per misoprostol protocol Plan: induction and GBS prophylaxis tx (For unknown group B strep. I collected the culture. It was not resulted.) (2) Qualifiers: Weeks of gestation: 24 weeks Qualified Code(s): Z3A.24 - 24 weeks gestation of
[2025-03-03 18:58] LABS: ROM Kit Exp Date# 11152027; ROM Kit Lot # 58102387; Swb Mxed in Solvent 1 min? Yes
[2025-03-03 18:59] LABS: ROM Swab Mixed By: FS; Rupture of Fetal Membranes Positive (Negative)
[2025-03-03] MEDS: RINGERS LACTATED 1000 ML 1,000 ML 100 ML IV (19:20)
--- NOTE | 2025-03-03 21:44 | PD.LDPN ---
Documentation for date of: 03/03/25 OB Labor Progress Note Pain Control Pain control: tolerating well Comments: Patient rates her pain a 5 out of 10 Pelvic Exam Dilation (cm): 2 Effacement (%): 70 station: -3 Amniotic membrane status: Ruptured Comments: Patient ruptured her bag at 1830. I examined the patient at approximately 2140. IUPC placed patient is a tight 2 cm/70/-2 to -3. Mid. Will start Pitocin augmentation. Contractions Monitor mode: External Contraction frequency: After IUPC placed, contractions are noted to be 4 minutes apart Contraction intensity: Mild Status status: Category l Assessment and Plan Assessment: induction ongoing Plan OB labor note: begin Pitocin augmentation
--- NOTE | 2025-03-03 22:27 | PC.NURSE ---
technical writer overseeing Bladimir Martinez rn inservicing to labor and delivery. reviewed tracing and charting. noted to be accurate.
[2025-03-03] MEDS: OXYTOCIN in NS 30 units 30 UNIT/500 ML BAG IV (22:33)
[2025-03-04] VITALS (181 sets, daily range): BP systolic 100–159; BP diastolic 38–101; PULSE 58–121; RESP 12–20; TEMP 36.4–38.2; O2SAT 87–100
[2025-03-04] MEDS: fentaNYL CIT INJ 50 mCg/ML AMP 2ML 100 MCG IVP ×3 (01:57→04:41)
--- NOTE | 2025-03-04 07:13 | PC.NURSE ---
03/03/25 to 03/04/25 RN precepting Bladimir Martinez RN, review and agree with labor assessment progress charting.
--- NOTE | 2025-03-04 08:11 | PD.LDPN ---
Documentation for date of: 03/04/25 OB Labor Progress Note Pain Control Comments: Epidural Pelvic Exam Dilation (cm): 3 Effacement (%): 40 station: -3 Amniotic membrane status: Leaking Comments: IUPC in place Contractions Monitor mode: Internal Contraction frequency: 4-5 min Contraction intensity: Mild Status status: Category l Assessment and Plan Comments: Induction with Pitocin on going Inadeuate MVUs Increase Pitocin to obtain 180-200 mvUs
[2025-03-04] MEDS: ONDANSETRON INJ 2 MG/ML INJ 2 ML 4 MG IVP (12:40)
--- NOTE | 2025-03-04 12:53 | PD.LDPN ---
Documentation for date of: 03/04/25 OB Labor Progress Note Pain Control Comments: Epidural Pelvic Exam Dilation (cm): 2 Effacement (%): 60 station: -3 Amniotic membrane status: Leaking Comments: Per RN exam. Contractions Monitor mode: Internal Contraction frequency: 3-5 Contraction intensity: Mild Status status: Category ll Assessment and Plan Comments: Contraction pattern still not adequate. Cervix unchanged per RN exam. Pt wants to continue to pursue vaginal delivery. Incremental increases in Pitocin ongoing.
[2025-03-04] MEDS: RINGERS LACTATED 1000 ML 1,000 ML 100 ML IV (15:38)
[2025-03-04] MEDS: Ampicillin Inj 2,000 MG in SODIUM CHLORIDE 0.9% (POP) 100 ML 200 MG IV ×2 (15:43→19:45)
[2025-03-04] MEDS: ACETAMINOPHEN IVPB 1,000 MG/100 ML VIAL 250 MG IV (16:12)
--- NOTE | 2025-03-04 16:18 | PD.LDPN ---
Documentation for date of: 03/04/25 OB Labor Progress Note Pelvic Exam Dilation (cm): 3 Effacement (%): 80 station: -3 Amniotic membrane status: Leaking Contractions Monitor mode: Internal Contraction frequency: 2-3 Contraction pattern: Coupling Contraction intensity: Moderate Status status: Category ll Assessment and Plan Comments: Chorioamnionitis On Amp/Gent. Adequate MVUs for the past 2 hours: No cervical change for the past 10 hours. Station -3. Caput. Patient requests delivery Informed consent was obtained. The patient was made aware of the risks, complications, alternatives and benefits of the proposed procedure and she agrees. 2 units of packed red blood cells ordered and on standby
--- NOTE | 2025-03-04 16:23 | PD.GYNPROC ---
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 Procedure Date of procedure: 03/04/25 Procedure Performed: Primary Low Tranverse Section via Pfannesteil Skin Incision Indication: IUP 40 weeks Gestational HTN Induction of Labor Chorioamniontis Failure to Progress Pre-Op diagnosis: IUP 40 weeks Gestational HTN Induction of Labor Chorioamniontis Failure to Progress Post-Op diagnosis: IUP 40 weeks Gestational HTN Induction of Labor Chorioamniontis Failure to Progress Anesthesia type: Spinal Procedure description: After proper informed consent was obtained and the patient was made aware of the risks, complications, alternatives and benefits of the proposed procedure she was taken to the operating room where she underwent induction of spinal anesthesia. She was prepped and draped in the usual sterile fashion. A timeout was performed.? A Pfannenstiel skin incision was made with the scalpel and carried through to the underlying layer of fascia with the Bovie. The fascia was nicked in the midline incision and the incision was extended bilaterally with the Bovie. The inferior aspect of the fascial incision was grasped with Sunny clamps elevated and the underlying rectus muscle dissected off with the Bovie. The superior aspect the fascial incision was grasped with Sunny clamps elevated and the underlying rectus muscle dissected off with the Bovie. The rectus muscles were in the midline. The peritoneum was grasped between 2 Miller clamps and entered sharply with the Metzenbaum scissors. The peritoneum was extended superiorly and inferiorly with good visualization of the bladder. The vesicouterine peritoneum was incised transversely and the bladder flap created digitally. A Wilmot blade was inserted. A low transverse incision was made in the uterus with a scapel and the incision was extended digitally. The 's head delivered and nuchal cord reduced. The mouth and nose were suctioned with the bulb suction. The shoulder and body delivered atraumatically. The cord was clamped after 30 second delayed cord clamping and the cord was cut.? The was handed off to the waiting Pediatric staff, cord blood was collected for lab testing. The placenta was removed complete and intact. The uterus was exteriorized and cleared of all clots and debris. The uterine incision was closed with #1-0 chromic catgut suture in a running interlocking fashion. A second layer of the same suture was used to imbricate the first layer and obtain excellent hemostasis. The vesicouterine peritoneum was closed with 2-0 chromic catgut suture in a running fashion. The firm uterus was returned to the abdomen. The gutters were cleared of all clots and debris. The peritoneum was closed with 0 chromic catgut suture in running fashion. The rectus muscle was closed with 0 chromic catgut suture. The fascia was closed with 0 Vicryl beginning at each angle and ending in the center in a running fashion. The subcutaneous tissue was irrigated with warmed normal saline solution and found to be hemostatic. The subcutaneous tissue was closed with 2-0 chromic catgut suture in a running fashion. The skin was closed with 4-0 Monocryl. A Dermabond Prineo dressing was applied and a sterile pressure dressing was applied.? She tolerated the procedure well. Counts were correct. I discussed with the patient the nature of her condition, intraoperative findings and expectation for recovery all? questions answered. Specimen: other (placenta) Estimated blood loss (ml): 800 Findings: Viable infant 8 and 9. Amiotic fluid clear Placenta removed complete and intact. Normal appearing, uterus, ovaries and tubes. Complications: none Surgical staff Paul WINN Diagnosis Problem List Completed Was Problem List Reviewed/Reconciled?: Yes
--- NOTE | 2025-03-04 16:28 | PD.LDDS ---
DS: Providers Provider Date of admission: 03/03/25 09:32 Primary care physician: Physician No Primary/Family Admitting Provider: Bebe Rahman MD (OB Clinic) Attending Provider on Admission: Geo Lin MD Attending Provider on DC: Geo Lin MD Discharging Provider: Geo Lin MD DS: Diagnosis Problem List Completed Was Problem List Reviewed/Reconciled?: Yes Summary/Hosp Course Brief History: The patient is a 19-year-old G1, P0 with all care started at [facility] were transferred to the [facility] OB clinic at about 24 weeks. care up-to-date with Dr. Melody Rahman. She presented at term, at 40 weeks ,for scheduled induction of labor secondary to elevated BMI with borderline hypertension. Peripartum Data Delivery Method: Low Transverse complications: none [place] 1: Gender: Female Disposition of : home Time Spent with Patient Time attestation: Total time spent providing and/or coordinating discharge services: Exam Vital Signs Temp Pulse Resp BP Pulse Ox 99.9 F 116 H 15 127/69 99 03/04/25 15:30 03/04/25 16:20 03/04/25 06:22 03/04/25 16:20 03/04/25 16:27 Discharge Plan Plan Patient Disposition: HOME (Self Care) Patient condition on transfer: Stable Prescriptions/Referrals Prescriptions/Med Rec: New hydrocodone-acetaminophen 5-325 mg tablet 1 tab PO Q6H MDD 4 PRN (Reason: pain) Qty: 20 0RF ibuprofen 600 mg tablet 600 mg PO Q6H PRN (Reason: pain) Qty: 30 0RF Continued PNV no.95-ferrous fumarate-FA [] 28 mg iron- 800 mcg tablet 1 tab PO QDAY Referrals: No Primary/Family,Physician [Primary Care Provider] - Patient/Caregiver Discharge Instructions Discharge Activity: activity as tolerated Other Discharge Activity Instructions:: Follow up office 1 week with Ioana Malone CLINICAL DATA MANAGEMENT DIRECTOR Print Language: Italian Stand Alone Forms: Vi Award Info., Patient Portal Info Letter Planned Discharge Date 03/06/25
[2025-03-04] MEDS: ceFAZolin/D5W 2 GM IV 2 GM/100 ML BAG IV (16:43)
[2025-03-04] MEDS: FAMOTIDINE INJ 10 MG/ML VIAL 2 ML 20 MG IV (16:43)
[2025-03-04] MEDS: METOCLOPRAMIDE INJ 5 MG/ML VIAL 2 ML 10 MG IVP (16:44)
--- NOTE | 2025-03-04 18:46 | PD.LDDELS ---
Data (Ramos) Data Hx Section: No : 1 Term: 0 : 0 Livin Abortions: Spontaneous & Theraputic: 0 Delivery Data (Ramos) Labor Data Initiation of labor: Induction Induction/Augmentation Agent: Cytotec-PO and Pitocin ROM date: 03/03/25 ROM time: 18:30 Amniotic membrane rupture type: Spontaneous Amniotic fluid description: Clear Delivery Data EDC: 03/04/25 EDC calculated by:: LMP/early US confirmation Onset of labor date: 03/04/25 Onset of labor time: 17:33 Complete dilation date: 03/04/25 Complete dilation time: 17:33 delivery date: 03/04/25 delivery time: 17:33 Gestational age (weeks): 40 Gestational age (days): 0 Placenta delivery date: 03/04/25 Placenta delivery time: 17:34 Stage 1 total time: Labor - Stage 1 Duration 0 minutes Delivered by: Geo Lin Delivery nurse: DEAN RAE RN [facility] nurse: ERIC BARNHART RN Online Communications Manager at delivery: Yes (KOJO VIEIRA) Support person(s) at delivery: FOB Delivery Method Delivery method: Low Transverse Presentation: Vertex position: OP Anesthesia Type Anesthesia Type: Spinal and Epidural Anesthesia type: Epidural Placenta Placenta delivery description: Manual Removal Placenta Disposition: Sent to Pathology Cord blood sent to lab: Yes cord blood collection: Cord Blood Type Episiotomy Episiotomy description: None EBL Estimated blood loss (ml): 800 Umbilical Cord cord description: 3 Vessels and Nuchal Cord Additional Procedures None Complications Complications: None [place] Data (Ramos) [place] Data order: 4 's gender: Female weight (gms): 7 lb 10.401 oz Weight (pounds): 7 lbs and 10.4 ozs 1 minute: 8 5 minutes: 9
[2025-03-04] MEDS: OXYTOCIN in NS 20 units 20 UNIT/1,000 ML BAG 125 UNIT IV (18:57)
[2025-03-04] MEDS: KETOROLAC INJ 30 MG/ML VIAL IVP (20:23)
[2025-03-04 23:11] LABS: Basophils # (Auto) 0.0 Thou/mm3 (0.0-0.2); Basophils % (Auto) 0 % (0-2.5); Eosinophils # (Auto) 0.0 Thou/mm3 (0.0-0.5); Eosinophils % (Auto) 0 % (0-10); Hematocrit 31.4 % (36.0-46.0); Hemoglobin 10.8 g/dL (12.0-16.0); Immature Granulocytes Auto 0.07 Thou/mm3 (0.00-0.00); Lymphocytes # (Auto) 1.1 Thou/mm3 (1.0-4.8); Lymphocytes % (Auto) 6 % (10-50); Mean Corpuscular HGB Conc 34.4 g/dl (31.0-37.0); Mean Corpuscular Hemoglobin 31.5 pg (25.0-35.0); Mean Corpuscular Volume 92 fL (80-100); Monocytes # (Auto) 1.3 Thou/mm3 (0.0-0.8); Monocytes % (Auto) 8 % (0-12); Neutrophils # (Auto) 14.4 Thou/mm3 (1.8-7.7); Neutrophils % (Auto) 85 % (37-80); Nucleated Red Blood Cell # 0.00 Thou/mm3 (0.00-0.00); Nucleated Red Blood Cell % 0 /100 WBC (0); Platelet Count 114 Thou/mm3 (140-440); RDW Standard Deviation 41.8 fL (36.4-46.3); Red Blood Count 3.43 Miln/mm3 (4.00-5.20); White Blood Count 16.9 Thou/mm3 (4.5-11.0)
[2025-03-04] MEDS: IBUPROFEN TAB 400 MG TABLET 800 MG PO (23:46)
[2025-03-05] MEDS: Ampicillin Inj 2,000 MG in SODIUM CHLORIDE 0.9% (POP) 100 ML 200 MG IV ×3 (01:54→12:58)
[2025-03-05] MEDS: RINGERS LACTATED 1000 ML 1,000 ML 999 ML IV (02:17)
--- NOTE | 2025-03-05 02:32 | PC.NURSE ---
Patient has decrease urine output (100cc in 6 hrs). MD notified, ordered to give 1L of LR bolus.
[2025-03-05 04:20] VITALS: BP 123/69; PULSE 81; RESP 20; TEMP 36.9; O2SAT 96
[2025-03-05 05:15] LABS: Basophils # (Auto) 0.1 Thou/mm3 (0.0-0.2); Basophils % (Auto) 0 % (0-2.5); Eosinophils # (Auto) 0.0 Thou/mm3 (0.0-0.5); Eosinophils % (Auto) 0 % (0-10); Hematocrit 30.2 % (36.0-46.0); Hemoglobin 10.2 g/dL (12.0-16.0); Immature Granulocytes Auto 0.07 Thou/mm3 (0.00-0.00); Lymphocytes # (Auto) 1.5 Thou/mm3 (1.0-4.8); Lymphocytes % (Auto) 9 % (10-50); Mean Corpuscular HGB Conc 33.8 g/dl (31.0-37.0); Mean Corpuscular Hemoglobin 31.6 pg (25.0-35.0); Mean Corpuscular Volume 94 fL (80-100); Monocytes # (Auto) 1.1 Thou/mm3 (0.0-0.8); Monocytes % (Auto) 7 % (0-12); Neutrophils # (Auto) 13.1 Thou/mm3 (1.8-7.7); Neutrophils % (Auto) 83 % (37-80); Nucleated Red Blood Cell # 0.00 Thou/mm3 (0.00-0.00); Nucleated Red Blood Cell % 0 /100 WBC (0); Platelet Count 85 Thou/mm3 (140-440); RDW Standard Deviation 43.8 fL (36.4-46.3); Red Blood Count 3.23 Miln/mm3 (4.00-5.20); White Blood Count 15.9 Thou/mm3 (4.5-11.0)
[2025-03-05 05:54] LABS: Alanine Aminotransferase 16 U/L (10-49); Albumin, Serum 2.7 gm/dL (3.5-5.0); Albumin/Globulin Ratio 1.7 (1.2-2.2); Alkaline Phosphatase 96 U/L (46-116); Anion Gap 8 (7-16); Aspartate Amino Transferase 24 U/L (0-34); BUN/Creatinine Ratio 14 Ratio (12-20); Bilirubin,Total 1.1 mg/dL (0.3-1.2); Blood Urea Nitrogen 11 mg/dL (9-23); Calcium 8.0 mg/dL (8.3-10.6); Calcium (Corrected) 9.0 mg/dL (8.5-10.1); Carbon Dioxide 24.6 mMol/L (20.0-31.0); Chloride 105 mMol/L (98-107); Creatinine (Component) 0.8 mg/dL (0.6-1.3); Estimated Creatinine Clearance 144.1 mL/min (>60); Globulin 1.6 gm/dL (2.3-3.5); Glucose 73 mg/dL (74-106); Osmolality,Calculated 274 (275-295); Potassium 3.8 mMol/L (3.4-5.1); Sodium 138 mMol/L (136-145); Total Protein 4.3 gm/dL (5.7-8.2); eGFR > 60 See Note
[2025-03-05 07:15] VITALS: BP 114/72; PULSE 88; RESP 18; TEMP 36.6; O2SAT 96
--- NOTE | 2025-03-05 07:24 | ESPR_ITS ---
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 No acute complaints. Ambulating, tolerating p.o. and voiding without difficulty. HTN/Pre-Eclampsia screen: No chest pain, shortness of breath, headache, visual changes, epigastric or right upper quadrant pain. Breast-feeding, lochia diminishing. Bowel: Flatus+/ BM+ Exam Vital Signs Temp Pulse Resp BP Pulse Ox O2 Del Method 98.4 F 81 20 123/69 96 Room Air 03/05/25 04:20 03/05/25 04:20 03/05/25 04:20 03/05/25 04:20 03/05/25 04:20 03/05/25 04:20 Constitutional Constitutional: no acute distress Routine HEENT Exam Head: Present normocephalic and atraumatic Eye: Present EOMI and PERRL ENT: Present mucous membranes moist Routine Neck Exam Neck: Present supple and trachea midline Routine Respiratory Exam Respiratory: Present chest non-tender, lungs clear, normal breath sounds and no resp distress Routine Cardiovascular Exam Cardiovascular: Present RRR Routine Abdominal Exam Abdominal: Present soft and normoactive bowel sounds Routine Extremities Exam Extremities: Present full ROM Routine Skin Exam Skin: Present intact, dry and warm Routine Neurological Exam Neurological: Present alert, oriented X3 and CN II-XII intact Routine Psychiatric Exam Psychiatric: Present normal affect and normal thought process Objective Labs 03/05/25 05:00 03/05/25 05:00 Labs: Laboratory Results - last 24 hr 03/04/25 03/05/25 22:43 05:00 WBC 16.9 H D 15.9 H RBC 3.43 L 3.23 L Hgb 10.8 L 10.2 L Hct 31.4 L 30.2 L MCV 92 94 MCH 31.5 31.6 MCHC 34.4 33.8 RDW Std Deviation 41.8 43.8 Plt Count 114 L 85 L D Neut % (Auto) 85 H 83 H Lymph % (Auto) 6 L 9 L [place] % (Auto) 8 7 Eos % (Auto) 0 0 Baso % (Auto) 0 0 Neut # (Auto) 14.4 H 13.1 H Lymph # (Auto) 1.1 1.5 [place] # (Auto) 1.3 H 1.1 H Eos # (Auto) 0.0 0.0 Baso # (Auto) 0.0 0.1 Immature Gran # (Auto) 0.07 H 0.07 H Absolute Nucleated RBC 0.00 0.00 Immature Gran % 0 0 Nucleated RBC % 0 0 Sodium 138 Potassium 3.8 Chloride 105 Carbon Dioxide 24.6 Anion Gap 8 BUN 11 Creatinine 0.8 Estim Creat Clear Calc 144.1 eGFR > 60 BUN/Creatinine Ratio 14 Glucose 73 L Calculated Osmolality 274 L Calcium 8.0 L Corrected Calcium 9.0 Total Bilirubin 1.1 D AST 24 ALT 16 Alkaline Phosphatase 96 D Total Protein 4.3 L Albumin 2.7 L D Globulin 1.6 L Albumin/Globulin Ratio 1.7 Assessment & Plan Problem List (1) Morbid obesity with BMI of 40.0-44.9, adult: Status: Acute (2) : Status: Acute (3) -induced hypertension in third trimester: Status: Acute (4) delivery delivered: Status: Acute Assessment and plan: 1. Continue routine /post-op care 2. Labs reviewed, cbc appropriate 3. Remove dressing/[place] 4. Encourage to ambulate, shower 5. Encourage PO intake, breast feeding Time Spent With Patient Time: Total time spent is greater than 50% in coordination of care (as documented) at patient's floor/unit and/or counseling patient:
[2025-03-05] MEDS: ENOXAPARIN SOD INJ 40 MG/0.4 ML SYRINGE SC (07:36)
[2025-03-05] MEDS: DOCUSATE SOD 100 MG CAPSULE PO (07:36)
[2025-03-05] MEDS: Milk Of Magnesia Susp 30 ML UDC PO (07:36)
[2025-03-05] MEDS: SIMETHICONE 80 MG CHEW PO (07:36)
[2025-03-05] MEDS: HYDROcodone/APAP 5/325 TABLET 1 TAB PO ×2 (07:37→23:56)
[2025-03-05] MEDS: RINGERS LACTATED 1000 ML 1,000 ML 100 ML IV (09:30)
[2025-03-05 12:30] VITALS: BP 114/80; PULSE 91; RESP 16; TEMP 36.9; O2SAT 96
[2025-03-05] MEDS: IBUPROFEN TAB 400 MG TABLET 800 MG PO (12:58)
[2025-03-05] MEDS: HYDROcodone/APAP 5/325 TABLET 2 TAB PO (15:59)
[2025-03-05 16:00] VITALS: BP 120/71; PULSE 97; RESP 16; TEMP 37.1; O2SAT 95
[2025-03-05 20:00] VITALS: BP 126/82; PULSE 104; RESP 16; TEMP 36.8; O2SAT 95
[2025-03-05] MEDS: GENTAMICIN/NS 80 MG IVPB 80 MG/50 ML PIGGYBACK 50 MG IV (20:31)
[2025-03-06] VITALS: BP 112/62; PULSE 113; RESP 16; TEMP 37.4; O2SAT 99
[2025-03-06 04:00] VITALS: BP 130/84; PULSE 99; RESP 18; TEMP 36.9; O2SAT 99
[2025-03-06] MEDS: IBUPROFEN TAB 400 MG TABLET 800 MG PO (05:03)
[2025-03-06] MEDS: GENTAMICIN/NS 80 MG IVPB 80 MG/50 ML PIGGYBACK 50 MG IV (05:04)
[2025-03-06 08:00] VITALS: BP 114/73; PULSE 90; RESP 18; TEMP 36.8; O2SAT 97
[2025-03-06] MEDS: DOCUSATE SOD 100 MG CAPSULE PO (08:36)
--- NOTE | 2025-03-06 10:22 | PD.LDPPPRG ---
Subjective Subjective Interval history: Delivery type: , morbid obesity, gestational hypertension, patient is being monitored for low platelets. No signs of bleeding. Patient doing well this morning. No acute complaints. Ambulating, tolerating p.o. and voiding without difficulty. HTN/Pre-Eclampsia screen: No chest pain, shortness of breath, headache, visual changes, epigastric or right upper quadrant pain. Breast-feeding, lochia diminishing. Bowel: Flatus+/ BM+ Exam Vital Signs Temp Pulse Resp BP Pulse Ox O2 Del Method 98.3 F 90 18 114/73 97 Room Air 03/06/25 08:00 03/06/25 08:00 03/06/25 08:00 03/06/25 08:00 03/06/25 08:00 03/06/25 08:00 Constitutional Constitutional: no acute distress Routine HEENT Exam Head: Present normocephalic and atraumatic Eye: Present EOMI and PERRL ENT: Present mucous membranes moist Routine Neck Exam Neck: Present supple and trachea midline Routine Respiratory Exam Respiratory: Present chest non-tender, lungs clear, normal breath sounds and no resp distress Routine Cardiovascular Exam Cardiovascular: Present RRR Routine Abdominal Exam Abdominal: Present soft and normoactive bowel sounds Routine Extremities Exam Extremities: Present full ROM Routine Skin Exam Skin: Present intact, dry and warm Routine Neurological Exam Neurological: Present alert, oriented X3 and CN II-XII intact Routine Psychiatric Exam Psychiatric: Present normal affect and normal thought process Objective Labs 03/05/25 05:00 03/05/25 05:00 Assessment & Plan Problem List (1) Morbid obesity with BMI of 40.0-44.9, adult: Status: Acute (2) : Status: Acute (3) -induced hypertension in third trimester: Status: Acute (4) delivery delivered: Status: Acute Assessment and plan: PPD/POD#2 1. Continue routine care 2. Transition to PO meds. 3. Encourage to ambulate/ breast-feed 4. Anticipate discharge home today if platelets remain stable, if not she might have to stay another day (5) Gestational thrombocytopenia: Status: Acute Assessment and plan: Repeat platelet counts at noon Time Spent With Patient Time: Total time spent is greater than 50% in coordination of care (as documented) at patient's floor/unit and/or counseling patient:
[2025-03-06 11:15] VITALS: BP 123/78; PULSE 90; RESP 18; TEMP 36.6; O2SAT 96
[2025-03-06 11:46] LABS: Platelet Count 112 Thou/mm3 (140-440)
--- NOTE | 2025-03-06 12:35 | PC.NURSE ---
Dr. Ch made aware of new platelet count, ok to discharge pt
== END 2025-03-06 14:03 | disposition home or self-care (01) | DRG 786 ==
LOC: S4SX 03-04 16:31 → S4NX 03-04 17:02
PROVIDERS: Specialist; Admitting Provider Obstetrics & Gynecology; Visit Provider Obstetrics & Gynecology
PROC: 3E0S3BZ Introduction of Anesthetic Agent into Epidural Space, Percutaneous Approach (ICD-10-PCS; CPT 59514; principal; 2025-03-04 16:30)
DX: O48.0 Post-term pregnancy (principal); O41.1230 Chorioamnionitis, third trimester, not applicable or unspecified; O13.4 Gestational [pregnancy-induced] hypertension without significant proteinuria, complicating childbirth; Z37.0 Single live birth; E66.01 Morbid (severe) obesity due to excess calories; O99.214 Obesity complicating childbirth; O62.2 Other uterine inertia; O69.81X0 Labor and delivery complicated by cord around neck, without compression, not applicable or unspecified; Z3A.40 40 weeks gestation of pregnancy
CPT/HCPCS: 36415; 59409; 76815; 80053; 80307; 81001; 82570; 84112; 84156; 84550; 85025; 85049; 85384; 85610; 85730; 86780; 86850; 86900; 86901; 94762; A4314; A4649; J0131; J0290; J0689; J1580; J1650; J1885; J2274; J2371; J2405; J2590; J2765; J2795; J3010; J3490; J7120; A9270; J2270

== ENCOUNTER 2025-03-12 13:05 | Outpatient (AMB) | payer OTHER, SELFPAY ==
[2025-03-12 13:12] VITALS: BP 124/83; PULSE 80; RESP 17; TEMP 36.7; O2SAT 97; BMI 41.5
--- NOTE | 2025-03-12 13:12 | AMBOBPPN_ITS ---
Vital Signs 03/12/25 13:12 Height 1.63 m Height Method Stated Weight 110.223 kg Weight Measurement Method Standing Scale BMI 41.5 BP 124/83 Blood Pressure Source Automatic Cuff Blood Pressure Location Right Upper Arm Position Sitting Respiration 17 Pulse 80 Pulse Source Monitor Temp 98.0 F Temp Source Temporal Artery Scan Pulse Oximetry (%) 97 Oxygen Delivery Method Room Air Allergies/Home Meds Allergies & Medications Allergies No Known Allergies Allergy (Verified 03/12/25 13:14) Medication Reconciliation vit no.95-ferrous fumarate 28 mg-folic acid 800 mcg tablet () 1 tab PO QDAY 01/15/25 [History Confirmed 03/12/25] hydrocodone 5 mg-acetaminophen 325 mg tablet 1 tab PO Q6H PRN pain #20 tabs 03/04/25 [Rx Confirmed 03/12/25] ibuprofen 600 mg tablet 600 mg PO Q6H PRN pain #30 tabs 03/04/25 [Rx Confirmed 03/12/25] Intake Visit Data Collection New Patient or Established: Established Patient (seen at [facility] within 3 years) Reason for Visit:: 1WEEK CSECTION Seen by Clinical Staff ONLY (RN/MA): No Brush Machine Setter Required: No Do You Feel Safe at Home: Yes Authorities Contacted: N/A PCP or OBGYN visit in last 3 months: Yes Hx Now: No Are you currently on any form of Control: No Pain Present Currently: Yes Pain Location: Abdomen (CSECTIN INCISION) Pain Scale Used: [place]/Numerical Pain scale:: 4 Smoking Status Smoking Status: Never smoker 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 Tobacco History Smoking Status: Never smoker Second Hand Smoke Exposure: No Alcohol History Alcohol Intake: Never Domestic Abuse History Do You Feel Safe at Home: Yes EPDS - PP Depression Screening [place] Pospartum Depression Screen I have been able to laugh and see the funny side of things: (0) As much as I always could I have looked forward with enjoyment to things: (0) As much as I ever did I have blamed myself unnecessarily when things went wrong: (0) No, never I have been anxious or worried for no good reason: (0) No, not at all I have felt scared or panicky for no very good reason: (0) No, not at all Things have been getting on top of me: (0) No, I have been coping as well as ever I have been so unhappy that I have had difficulty sleeping: (0) No, not at all I have felt sad or miserable: (0) No, not at all I have been so unhappy that I have been crying: (0) No, never The thought of harming myself has occurred to me: (0) Never Total Score: EPDS Score: Referral is indicated for score of 9 or more, suicidal, or if provider believes patient is depressed regardless of score.: 0 EPDS completed yes Care OB Visit Log OB Flowsheet Initial Weight: Not Recorded Date -?-?-?-?-?-?-?-?-?-?-?-?- EGA Weight BP Alb Glu CTX Pres Fundal ht FHR Mov Dilation Station Effacement Hx Notes Visit Note 12/11/24 -?-?-?-?-?-?-?-?-?-?-?-?- 28w 1d 109.543 kg 115/73 29 140 active Not seen as I had to run out for a delivery +FM more in am and at night. No VB or LOF. Back pain, sits at work all day 01/15/25 -?-?-?-?-?-?-?-?-?-?-?-?- 33w 1d 116.29 kg 141/84 34 135 active Positive movement no loss of fluids no vaginal bleeding positive headache. 3+ edema to labor and delivery for rule out preeclampsia. Off work on modified bedrest. 01/20/25 -?-?-?-?-?-?-?-?-?-?-?-?- 33w 6d 112.037 kg 124/78 35 140 active Positive movement no contractions no loss of fluids. No headaches. +2 edema. 01/29/25 -?-?-?-?-?-?-?-?-?-?-?-?- 35w 1d 113.171 kg 119/77 absent 36 135 active + FM, no UCs or LOF +1 edema +1 edema Weekly NSTs BPP ordered ultrasound order ed for size dates and fluid. 02/02/25 -?-?-?-?-?-?-?-?-?-?-?-?- 35w 5d 114.475 kg 126/80 absent 35 145 a ctive Positive movement no contractions no loss of fluids no headaches no preeclamptic signs or symptoms. Ordered ultrasound for size and dates. Group B strep swab done today. Patient is present with her mother today asking about pushing positions in labor. Patient thinks she might not be interested in epidural. 02/09/25 -?-?-?-?-?-?-?-?-?-?-?-?- 36w 5d 115.723 kg 126/78 absent cephalic 35 14 6 absent reports active, denies s/s of PIH, no leaking or bleeding. no c/o labor s/s review labor precaution and ER precaution. advised fkc bid, no questions today. rtc 1 week with OB 02/19/25 -?-?-?-?-?-?-?-?-?-?-?-?- 38w 1d 118.444 kg 128/81 occasional cephalic 36 154 active Pt BP gppd at home. Paperwork sent over again to L and D to try to get bi weekly NSTs done. No UCs or LOF GBBS culture not back yet 02/25/25 -?-?-?-?-?-?-?-?-?-?-?-?- 39w 0d 117.48 kg 131/80 occasional cephalic 39 137 active 1 -3 50 Positive movement no contractions no loss of fluids No strep culture back we will have it checked in OB triage when she comes in Saturday for an NST. STORM Calculator Estimated Delivery Date Method Current WG Current Estimate 03/04/25 Ultrasound #1 41w 1d Other Estimates 03/04/25 LMP (Certain) 41w 1d Expected Delivery Route/Plan Anticipate BMI 45 Specific Issue/Plans OB Transfer from [facility] at 24 weeks. Maternal obesity with a BMI of approximately 40. labs on the chart A+\antibody screen negative\rubella immune\RPR nonreactive\HIV negative\hep C negative\hepatitis B surface antigen negative\NIPT within normal limits\CF negative\SMA negative\level 2 ultrasound and echo normal with Dr. Turner Notes Visit Date: 02/25/25 Last Updated by: Bebe Rahman (OB Clinic)MD Patient is scheduled for induction of labor 03/03/2025 at 7 AM. Visit Date: 02/19/25 Last Updated by: Bebe Rahman (OB Clinic)MD US done at [facility] baby is measuring 7 lbs 4 oz with an FABY of 15. Probable IOL by her due date secondary to maternal elevated BMI Visit Date: 02/02/25 Last Updated by: Bebe Rahman (OB Clinic)MD Cancel IOL at 37 weeks Visit Date: 01/29/25 Last Updated by: Bebe Rahman (OB Clinic)MD Patient is taking her blood pressures at home and they are consistently 1 20s over 70s. I will set up nonstress test starting next week just to ensure patient's blood pressure remains stable. Will check a group B strep next visit and an ultrasound for growth. Visit Date: 01/20/25 Last Updated by: Bebe Rahman (OB Clinic)MD Patient went to labor and delivery 01/15/2025 and was worked up for preecl ampsia. She was not sent home on medication. We took her off work on modified bedrest. Patient was told by Dr Lin she might have to be induced at 37 weeks. She states she is checking her blood pressures at home and now they are in the 120s over 70s. When I saw her on the she was quite anxious about work. I told the patient would continue to monitor her blood pressures at home if her blood pressures are elevated we will induce between 37 and 38 weeks however if the patient remains stable we might not consider induction. We will see her weekly. Patient understands the signs of preeclampsia including headaches right upper quadrant pain and scotomata. Visit Date: 12/11/24 Last Updated by: Bebe Rahman (OB Clinic)MD Pt spouse present. Multiple Questions answered. Pt may have some pre depression. also, she has a cold she cannot kick with a possible sinus infection. Will call in a [employer] Note for work accommodation HPI Interval History: The patient is a 19-year-old G1 now P1 001 status post primary 03/04/2025 for arrest of dilatation. I brought the patient into inducer at term due to elevated BMI of 43. Patient mated to 2 to 3 cm dilation and stalled out. Dr Lin performed her 03/04/2025. Patient left the hospital 2 days later. She is present today with the baby and her . Her daughter was born weighing 7 pounds 1 oz Was or delivery considered high risk: Yes Delivery type: Was labor induced: yes and medically indicated (Maternal BMI of 43 at 40 weeks) Gestational age at delivery (weeks): 40 Delivery date: 03/04/25 Delivering provider: Dr Lin Delivery complications: No Is patient infant: Yes Is patient sexually active: No Exam Narrative Physical exam: Abdomen obese nontender incision clean dry and intact extremities showed no edema General Limitations: no limitations General Appearance: alert, in no apparent distress, cooperative and well groomed Office Procedures OB Clinic LOC & Office Proc's Nursing/Assessment Patient Status: Established Patient OB Clinic Nursing Assessment: Medication Reconciliation, Update PMH in EMR and Vital Signs OB Clinic Coordination of Care: Complex Care and Chronic Disease 1-5, Consent,records obtained, informed consent, Education Simp Pt/Fam and Staff clarify orders Established Patient Charge Established Patient Point Assignment: 85 Post Follow-up Visit Post Follow up Visit: Yes Assessment & Plan Diagnosis / Problem List (1) Obesity, morbid, BMI 40.0-49.9: Status: Acute (2) delivery delivered: Status: Acute Plan: Okay to ambulate. Incision healing well. Wound care discussed. No signs of depression. Her is present he is quite helpful. Her mother is also quite involved. She is doing well with breast-feeding. Instructed no heavy lifting intercourse tampons douching for 4 weeks. Follow-up then. (3) care following delivery: Status: Acute Care Reviewed delivery summary and any complications: Yes Uterus involuted to: 15 weeks Perineal / incision healing noted: Yes Screened for depression: Yes Depression counseling provided: No Discussed family planning & contraception: No Counseling on safe resumption of sexual activity: No Counseling on gradual excercise: Yes Discussed and concerns (describe), provided support: Yes Referred to transcription specialist: No Counseled on good nutrition, hydration, and self care: Yes Reviewed vaccine status: No Chronic & current problems reconciled on problem list: No care discussed; questions answered: feeding and sleep Additional counseling & anticipatory guidance provided: Follow-up in 4 weeks
== END 2025-03-12 13:45 | disposition home or self-care (01) ==
LOC: HODSOBC 13:05
PROVIDERS: Supervising Provider Obstetrics & Gynecology; Visit Provider Obstetrics & Gynecology
DX: Z39.2 Encounter for routine postpartum follow-up (principal); Z39.1 Encounter for care and examination of lactating mother; O99.215 Obesity complicating the puerperium; E66.01 Morbid (severe) obesity due to excess calories
CPT/HCPCS: Z1038

== ENCOUNTER 2025-04-12 13:07 | Outpatient (AMB) | payer OTHER, SELFPAY ==
--- NOTE | 2025-04-12 13:29 | AMBOBPPN_ITS ---
Vital Signs 04/12/25 13:30 Height 1.63 m Height Method Stated Weight 105.007 kg Weight Measurement Method Standing Scale BMI 39.5 BP 130/75 Blood Pressure Source Automatic Cuff Blood Pressure Location Left Upper Arm Position Sitting Respiration 16 Pulse 107 H Pulse Source Monitor Temp 97.2 F Temp Source Oral Pulse Oximetry (%) 98 Oxygen Delivery Method Room Air Allergies/Home Meds Allergies & Medications Allergies No Known Allergies Allergy (Verified 04/12/25 13:32) Medication Reconciliation vit no.95-ferrous fumarate 28 mg-folic acid 800 mcg tablet () 1 tab PO QDAY 01/15/25 [History Confirmed 04/12/25] hydrocodone 5 mg-acetaminophen 325 mg tablet 1 tab PO Q6H PRN pain #20 tabs 03/04/25 [Rx Confirmed 04/12/25] ibuprofen 600 mg tablet 600 mg PO Q6H PRN pain #30 tabs 03/04/25 [Rx Confirmed 04/12/25] Intake Visit Data Collection New Patient or Established: Established Patient (seen at [facility] within 3 years) Reason for Visit:: visit Seen by Clinical Staff ONLY (RN/MA): No Quality Assurance Supervisor Trim Required: No Do You Feel Safe at Home: Yes Authorities Contacted: N/A PCP or OBGYN visit in last 3 months: Yes Date of Last PCP or OBGYN visit: 03/12/25 Hx Now: Yes Are you currently on any form of Control: No Pain Present Currently: No Pain Scale Used: [place]/Numerical Pain scale:: 0 Smoking Status Smoking Status: Never smoker 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 Her Memo is an IT tech. Tobacco History Smoking Status: Never smoker Second Hand Smoke Exposure: No Alcohol History Alcohol Intake: Never Domestic Abuse History Do You Feel Safe at Home: Yes EPDS - PP Depression Screening [place] Pospartum Depression Screen I have been able to laugh and see the funny side of things: (0) As much as I always could I have looked forward with enjoyment to things: (0) As much as I ever did I have blamed myself unnecessarily when things went wrong: (0) No, never I have been anxious or worried for no good reason: (0) No, not at all I have felt scared or panicky for no very good reason: (0) No, not at all Things have been getting on top of me: (0) No, I have been coping as well as ever I have been so unhappy that I have had difficulty sleeping: (0) No, not at all I have felt sad or miserable: (0) No, not at all I have been so unhappy that I have been crying: (0) No, never The thought of harming myself has occurred to me: (0) Never Total Score: EPDS Score: Referral is indicated for score of 9 or more, suicidal, or if provider believes patient is depressed regardless of score.: 0 EPDS completed yes Care OB Visit Log OB Flowsheet Initial Weight: Not Recorded Date -?-?-?-?-?-?-?-?-?-?-?-?- EGA Weight BP Alb Glu CTX Pres Fundal ht FHR Mov Dilation Station Effacement Hx Notes Visit Note 12/11/24 -?-?-?-?-?-?-?-?-?-?-?-?- 28w 1d 109.543 kg 115/73 29 140 active Not seen as I had to run out for a delivery +FM more in am and at night. No VB or LOF. Back pain, sits at work all day 01/15/25 -?-?-?-?-?-?-?-?-?-?-?-?- 33w 1d 116.29 kg 141/84 34 135 active Positive movement no loss of fluids no vaginal bleeding positive headache. 3+ edema to labor and delivery for rule out preeclampsia. Off work on modified bedrest. 01/20/25 -?-?-?-?-?-?-?-?-?-?-?-?- 33w 6d 112.037 kg 124/78 35 140 active Positive movement no contrac tions no loss of fluids. No headaches. +2 edema. 01/29/25 -?-?-?-?-?-?-?-?-?-?-?-?- 35w 1d 113.171 kg 119/77 absent 36 135 active + FM, no UCs or LOF +1 edema +1 edema Weekly NSTs BPP ordered ultrasound order ed for size dates and fluid. 02/02/25 -?-?-?-?-?-?-?-?-?-?-?-?- 35w 5d 114.475 kg 126/80 absent 35 145 a ctive Positive movement no contractions no loss of fluids no headaches no preeclamptic signs or symptoms. Ordered ultrasound for size and dates. Group B strep swab done today. Patient is present with her mother today asking about pushing positions in labor. Patient thinks she might not be interested in epidural. 02/09/25 -?-?-?-?-?-?-?--?-?-?-?-?- 36w 5d 115.723 kg 126/78 absent cephalic 35 14 6 absent reports active, denies s/s of PIH, no leaking or bleeding. no c/o labor s/s review labor precaution and ER precaution. advised fkc bid, no questions today. rtc 1 week with OB 02/19/25 -?-?-?-?-?-?-?-?-?-?-?-?- 38w 1d 118.444 kg 128/81 occasional cephalic 36 154 active Pt BP gppd at home. Paperwork sent over again to [facility] to try to get bi weekly NSTs done. No UCs or LOF GBBS culture not back yet 02/25/25 -?-?-?-?-?-?-?-?-?-?-?-?- 39w 0d 117.48 kg 131/80 occasional cephalic 39 137 active 1 -3 50 Positive movement no contractions no loss of fluids No strep culture back we will have it checked in OB triage when she comes in Saturday for an NST. STORM Calculator Estimated Delivery Date Method Current WG Current Estimate 03/04/25 Ultrasound #1 45w 5d Other Estimates 03/04/25 LMP (Certain) 45w 5d Expected Delivery Route/Plan Anticipate BMI 45 Specific Issue/Plans OB Transfer from [facility] at 24 weeks. Maternal obesity with a BMI of approximately 40. labs on the chart A+\antibody screen negative\rubella immune\RPR nonreactive\HIV negative\hep C negative\hepatitis B surface antigen negative\NIPT within normal limits\CF negative\SMA negative\level 2 ultrasound and echo normal with Dr. Turner Notes Visit Date: 02/25/25 Last Updated by: Bebe Rahman (OB Clinic)MD Patient is scheduled for induction of labor 03/03/2025 at 7 AM. Visit Date: 02/19/25 Last Updated by: Bebe Rahman (OB Clinic)MD US done at [facility] baby is measuring 7 lbs 4 oz with an FABY of 15. Probable IOL by her due date secondary to maternal elevated BMI Visit Date: 02/02/25 Last Updated by: Bebe Rahman (OB Clinic)MD Cancel IOL at 37 weeks Visit Date: 01/29/25 Last Updated by: Bebe Rahman (OB Clinic)MD Patient is taking her blood pressures at home and they are consistently 120s over 70s. I will set up nonstress test starting next week just to ensure patient's blood pressure remains stable. Will check a group B strep next visit and an ultrasound for growth. Visit Date: 01/20/25 Last Updated by: Bebe Rahman ([facility] Clinic)MD Patient went to labor and delivery 01/15/2025 and was worked up for preeclampsia. She was not sent home on medication. We took her off work on modified bedrest. Patient was told by Dr Lin she might have to be induced at 37 weeks. She states she is checking her blood pressures at home and now they are in the 120s over 70s. When I saw her on the she was quite anxious about work. I told the patient would continue to monitor her blood pressures at home if her blood pressures are elevated we will induce between 37 and 38 weeks however if the patient remains stable we might not consider induction. We will see her weekly. Patient understands the signs of preeclampsia including headaches right upper quadrant pain and scotomata. Visit Date: 12/11/24 Last Updated by: Bebe Rahman ([facility])MD Pt spouse present. Multiple Questions answered. Pt may have some pre depression. also, she has a cold she cannot kick with a possible sinus infection. Will call in a [employer] Note for work accommodation HPI Interval History: Patient is a 2o year old status primary CS 03/04/[address] Lin. She was admitted at 40 weeks for an IOL for obesity and PIH. The patient never progressed past 2 to 3 cm. Her daughter was born weighing 7 lbs 10 oz. Baby is doing well. The baby's name is Lisa. Patient is exclusively breast-feeding. She stopped bleeding then had some spotting the other day. She has no postop complaints. Specifically no heavy bleeding fevers chills nausea or vomiting. NO continued pain. Off all pain meds. Was or delivery considered high risk: Yes Delivery type: Was labor induced: yes and medically indicated (-induced hypertension, maternal obesity) Gestational age at delivery (weeks): 40 Delivery date: 03/04/25 Delivering provider: DR. Geo Lin Delivery complications: No Is patient infant: Yes Is patient sexually active: No Contraception planned: Condoms Review of Systems Psychiatric Comments: No depression Exam Narrative Physical exam: Soft . Uterus involuted to normal size. Incision clean dry and intact. Patient declined Pap and pelvic exam. She states she will get a Pap in August when she turns 20. General Limitations: no limitations General Appearance: alert, in no apparent distress, comfortable, cooperative, healthy appearing and well groomed Office Procedures OB Clinic LOC & Office Proc's Nursing/Assessment Patient Status: Established Patient OB Clinic Nursing Assessment: Medication Reconciliation, Update PMH in EMR and Vital Signs OB Clinic Coordination of Care: Education Complex Pt/Fam, Consent,records obtained, informed consent, Lab and Imaging orders, Results/Orders obtained and Staff clarify orders Established Patient Charge Established Patient Point Assignment: 85 Established Patient Point Charge: EP Level 3 (80-115) Assessment & Plan Diagnosis / Problem List (1) care following delivery: Status: Acute Plan: She can go back to all normal activities including swimming, intercourse and exercise. She will use condoms for contraception. She will follow-up in August for an annual exam (2) Obesity, morbid, BMI 40.0-49.9: Status: Acute Plan: Encouraged healthy eating. Patient to continue breast-feeding. She has already lost weight . Care Reviewed delivery summary and any complications: Yes Uterus involuted to: less than 8 week size Perineal / incision healing noted: Yes Screened for depression: Yes Depression counseling provided: No Discussed family planning & contraception: Yes Contraception planned: Condoms Counseling on safe resumption of sexual activity: Yes Counseling on gradual excercise: Yes Discussed and concerns (describe), provided support: Yes Referred to funding specialist: No Counseled on good nutrition, hydration, and self care: Yes Reviewed vaccine status: No Infant care discussed; questions answered: feeding and sleep Follow up: routine/prn Additional counseling & anticipatory guidance provided: Call with heavy VB, signs of PP anxiety or depression
[2025-04-12 13:30] VITALS: BP 130/75; PULSE 107; RESP 16; TEMP 36.2; O2SAT 98; BMI 39.5
== END 2025-04-12 13:54 | disposition home or self-care (01) ==
LOC: HODSOBC 13:07
PROVIDERS: Supervising Provider Obstetrics & Gynecology; Visit Provider Obstetrics & Gynecology
DX: Z39.2 Encounter for routine postpartum follow-up (principal); Z39.1 Encounter for care and examination of lactating mother; O99.215 Obesity complicating the puerperium; E66.01 Morbid (severe) obesity due to excess calories
CPT/HCPCS: 99213; G0463